=== PATIENT | male | born 1950 | race Caucasian/White ===

== ENCOUNTER 2024-01-02 22:17 | Inpatient (IN) | payer OTHER, SELFPAY ==
[2024-01-02 22:40] VITALS: BP 107/65; PULSE 81; RESP 18; TEMP 36.4; O2SAT 98
[2024-01-02 23:22] VITALS: BMI 18.5
--- NOTE | 2024-01-03 01:43 | PC.ADMIT ---
Patient is a 73 year old male admitted to S1 on 01/02/24 at 2240 from [facility] for SI and MDD. Patient has a past medical history of AFIB, paraplegia (patient is bedbound, b/l lower extremities contracted, MDD. He lives at home with (HCP). Patient brought to [facility] after found him with a knife, making slicing motions to his arms. She also reported about one week ago, he attempted to drink bleach. While hospitalized, he was under the impression that he killed both his and JOB TRAINING SPECIALIST. Patient is noncompliant with his risperdal. Upon arrival to the unit, patient is alert and smiling. He is soft spoken, whispers repetitive statements during conversation. He is oriented to person, time. He believed he was at [facility]. When asked what brought him to the hospital, patient states ?I am Satan,? ?I shouldn?t be here,? When asked if this contract writer could call his , patient replied, ?No, she?s .? Patient declines SI/HI/AH/VH and contracts for safety. Skin assessment and contraband check completed with second RN. Patient has multiple open areas on his face (wound consult placed), b/l cheeks, b/l feet are dry and scaly. Coccyx is reddened but no breakdown noted. Patient also has multiple areas of keratosis along extremities and trunk. He has poor dentition and reports coughing when drinking liquids (swallow eval placed). Patient unable to sign any paperwork during admission process due to mental status. He is currently on 5 minute safety checks.
--- NOTE | 2024-01-03 06:40 | HO.PSYADMNOT ---
HPI Date of Service: 01/03/24 Chief Complaint: Major depressive disorder Sources of Information: patient interviewed, chart reviewed and crisis/core team assessment reviewed Additional Sources of Information: [facility] HPI Subjective Notes: [place] Warning (unable to show understanding) and Section 12B Narrative: Mr. Salinas is a 73 year-old male with hx of depression, hx of suicide attempt in 1969 which resulted in anoxic brain injury and paraplegia along with other speech impairments. He was brought to ED due to reporting that pt was expressing increased depression suicidal ideation and she had found him once holding a knife and in another occasion holding a bottle of bleach. Pt is paraplegic and is total care. Pt seen in his bed. It is very difficult to understand what he says. hypophonia noted, some repetition of certain words. He does not seem to be oriented to place. He did say that he is here because he tried to kill myself. Attempts to ask about how he attempted to kill himself, again not much information able to gather. He does repeat at times that I'm bad. At other times, he has also said that my is . Other times, he has said I didn't kill her she was sick. When asked to elaborate, he states I have goins. Again when asked to explain, no more further information. He smiles at times and seems to get along with one of the mental health counselors on the unit. He is eating when food presented to him. This video game script writer spoke with over the phone, difficult to understand as she appeared short of breath, which this video game script writer asked if she was okay, she said yes. She reports pt appears much more depressed than usual. Medical Evaluation Reviewed: Yes [facility] Medical History (Updated 01/05/24 @ 11:26 by Diamond Ewing NP) Paroxysmal A-fib Suicidal ideation Carbon monoxide poisoning, suicide attempt Anoxic brain injury Paraplegia MDD (major depressive disorder) Diagnostics Vital Signs (24Hr): Vital Signs - 24 hr 01/02/24 22:40 Temperature 97.6 F Pulse Rate 81 Respiratory Rate 18 Blood Pressure 107/65 Pulse Oximetry 98 Oxygen Delivery Method Room Air BMI result Body Mass Index 18.5 Labs 01/05/24 09:04 Meds/Allergies Meds Home Medications ?Medication ?Instructions ?Recorded ?Confirmed ?Type cyanocobalamin (vitamin B-12) 2,000 mcg PO DAILY 01/02/24 01/02/24 History 1,000 mcg tablet docusate sodium 50 mg capsule 100 mg PO BID 01/02/24 01/02/24 History hydroxyzine HCl 10 mg tablet 10 mg PO TID PRN Anxiety 01/02/24 01/02/24 History risperidone 0.5 mg tablet 0.5 mg PO BEDTIME 01/02/24 01/02/24 History sennosides 8.6 mg-docusate sodium 1 tab-cap PO BID 01/02/24 01/02/24 History 50 mg capsule (Senna Plus) sertraline 50 mg tablet 25 mg PO DAILY 01/02/24 01/02/24 History Allergies Allergies Allergy/AdvReac Type Severity Reaction Status Date / Time Penicillins Allergy Severe Anaphylaxis Verified 01/02/24 22:42 Mental Status Exam Mental Status Exam Narrative: Appearance: wearing hospital gown, in bed, in NAD behavior: not guarded, attempting to engage but very difficult to comprehend Psychomotor: some retardation noted Speech: significant for hypophonia, mumbles, mostly unintelligible, spontaneous TP: disorganized, TC: feeling depressed Affect: brightens at times SI: unable to assess HI: unable to assess VH/AH: appears internally preoccupied Delusions: some delusional content such as being Insight/judgment: impaired x 2. memory/cog: severe impairments in orientation, and other cognitive/memory functions Assessment & Plan Assessment & Plan (1) MDD (major depressive disorder): Status: Acute Code(s): F32.9 - Major depressive disorder, single episode, unspecified (2) Major neurocognitive disorder: Status: Acute Code(s): F03.90 - Unspecified dementia, unspecified severity, without behavioral disturbance, psychotic disturbance, mood disturbance, and anxiety Plan Mr. Salinas is a 73 year-old male with hx of anoxic brain injury, depression, cognitive impairments, paraplegic who was brought to ED due to increased depression, apparently holding a knife and attempting to cut wrist, another time holding bleech bottle. He is not able to move on his own not reach to dangerous objects on his own. risk of actual harm does seem low base on fact that he is paraplegic. It is very difficult to understand. His thought process is with derailment disorganized. suspect more severe cognitive impairments. He does appear with psychosis and delusions. Pending collateral information from his continuous churn buttermaker OP psychiatrist. PLAN 1. admit to S1, sect 12b 2. increase risperidone 1mg po BID. continue sertraline Patient educated on: diagnosis Reason for continued inpatient stay Substantial Risk for: harm to self and inability to function Statement Statement: I have reviewed the history and physical and performed a pertinent examination on my patient. No changes have occurred unless specified. If the History and Physical was not performed prior to admission, the Hospitalist's service will be consulted for completing the admission physical. Time Spent With Patient Time: Total time managing care of this patient today ____ minutes.
[2024-01-03 09:05] VITALS: BP 132/86; PULSE 89; RESP 16; TEMP 36.3; O2SAT 98
--- NOTE | 2024-01-03 11:47 | MHC.SL.SWA ---
Speech Pathologist Impression: Risk of Aspiration, Oral Phase Dysphagia Risk of Aspiration Due to: Reduced Cognition Weak Voice Dysphasia Diet Status: DOWNGRADE from regular texture to ground d/t oral dysphagia Liquid Consistency and Strategies for Safe Swallow: Liquid Intake Recommendation: Thin Liquid Intake Strategies: Small Sips Solid Food Consistency: Dietary Recommendations: Grnd/Mech Altered (NDD2) Additional Modifications to Solid Foods: Patient w/ mild oral phase dysphagia secondary to poor dentition. Recommend GROUND/MECH ALTERED (NDD2) solids for ease of mastication and THIN liquids, pills administered WHOLE in LIQUID or PUREE depending on patient's tolerance. To promote oral clearance, give small bites, ensure patient has cleared oral cavity before giving next bite, alternate bites with sips of liquid. Patient will need 1:1 feeding d/t paraplegia. Oral Medication Intake: Whole with Puree Please contact the pharmacy regarding appropriate crushable or liquid drug formulations that are available whenever modified delivery is recommended. Compensatory Strategies and Precautions to be Taken for Safe Swallow: Sitting Upright (90 deg) No Straw Small Bites and Sips Alternate Liquids/Solids Rate of Ingestion Change Supervision While Eating and Drinking for Safe Swallow: Total Assistance (1:1) Swallowing Recommended Treatments: Compens. Strategy Educat. Recommendation for Speech: Inpatient Speech Therapy Comment: 1 f/u to monitor Frequency/Duration: Date Range for Service Req: Timeline to reassess: PRN Motorcycle Builder Clinican/Clinical Fellow: No Supervisory Statement: I have reviewed and agree with the student/clinical fellow's documentation: N/A Speech Language Pathologist: Lynne Ma M.A., CCC-PIPE BENDER
[2024-01-03] MEDS: Cyanocobalamin (Vitamin B-12) 1,000 MCG TABLET 2000 MCG PO (12:04)
[2024-01-03] MEDS: Sertraline HCL 50 MG TABLET PO (12:05)
[2024-01-03] MEDS: Sennosides/Docusate Sodium TABLET 1 TAB PO ×2 (12:05→21:34)
[2024-01-03] MEDS: Docusate Sodium 100 MG/10 ML LIQUID PO ×2 (12:06→21:35)
[2024-01-03] MEDS: risperiDONE 1 MG TABLET PO ×2 (12:06→21:34)
--- NOTE | 2024-01-03 12:43 | P.CONHOSP_ITS ---
History of Present Illness Data of Consult Service Date: 01/03/24 Primary Care Provider: Unknown Physician HPI Reason for consult: Admission H&P Pt is a 73-year-old male with a PMH significant for?persistent AFib not on anticoagulation, MDD with multiple suicide attempts including carbon monoxide poisoning complicated by anoxic brain injury and paraplegia, medication overdoses, cutting, and ingestion of mouthwash requiring intubation and ICU admission who is admitted to [facility] for increasing depression and SI. Patient was reportedly home with his when she witnessed him holding a knife to his wrist and making a/seeing motion. The previous week patient attempt to drink bleach. Medical consult for admission H&P. ?Patient is seen and evaluated at bedside where he is alert to self only. Patient speaks in a whisper and is difficult to understand, which is further complicated by perseverating on a particular idea/word which he will then repeat. Patient does not appear to have any acute medical complaints at this time. Vitals stable and WNL. Labs from admitting ED reviewed and grossly unremarkable. Review of Systems Review of Systems: Yes Unobtainable due to mental status [facility] Medical History (Updated 01/03/24 @ 13:37 by YISSEL Karimi) Paroxysmal A-fib Suicidal ideation Carbon monoxide poisoning, suicide attempt Anoxic brain injury Paraplegia MDD (major depressive disorder) Social History Household Members: Spouse Housing: House Do you presently have visiting nurse or other home services: Yes (LEARNING MANAGER) Patient Tobacco Use Status: Former Tobacco user Tobacco use type: Cigarette Use of substances other than those prescribed or required for medical reasons: No Advance Directives: Yes Advance Directives Information Provided: No Recently lost weight without trying: Unsure How much weight loss: Unsure Eating poorly because of decreased appetite: Yes Nutrition screen score: 5 Nutrition Risks: Dental problems and Difficulty swallowing Poor oral hygiene: Yes Meds Allergies Allergy/AdvReac Type Severity Reaction Status Date / Time Penicillins Allergy Severe Anaphylaxis Verified 01/02/24 22:42 Active Medications: Current Medications Acetaminophen (Acetaminophen 325 Mg Tablet) 650 mg PO Q6H PRN PRN Reason: Headache/Pain Mild Scale (1-3) Al Hydroxide/Mg Hydroxide (Magnesium Hydrox/Alum Hydrox 30 Ml Oral.Susp) 30 ml PO Q6H PRN PRN Reason: Heartburn/Nausea Cyanocobalamin (Cyanocobalamin (Vitamin B-12) 1,000 Mcg Tablet) 2,000 mcg PO DAILY [facility] Last Admin: 01/03/24 12:04 Dose: 2,000 mcg Docusate Sodium (Docusate Sodium 100 Mg/10 Ml Liquid) 100 mg PO BID [facility] Last Admin: 01/03/24 12:06 Dose: 100 mg Magnesium Hydroxide (Milk Of Magnesia 30 Ml Oral.Susp) 30 ml PO DAILY PRN PRN Reason: Constipation Olanzapine (Olanzapine 5 Mg Tablet) 5 mg PO Q6H PRN PRN Reason: agitation Risperidone (Risperidone 1 Mg Tablet) 1 mg PO BID [facility] Last Admin: 01/03/24 12:06 Dose: 1 mg Senna/Docusate Sodium (Sennosides/Docusate Sodium Tablet) 1 tab PO BID [facility] Last Admin: 01/03/24 12:05 Dose: 1 tab Sertraline HCl (Sertraline Hcl 50 Mg Tablet) 50 mg PO DAILY [facility] Last Admin: 01/03/24 12:05 Dose: 50 mg Trazodone HCl (Trazodone Hcl 50 Mg Tablet) 50 mg PO BEDTIME [id number] PRN PRN Reason: Insomnia Home Medications ?Medication ?Instructions ?Recorded ?Confirmed ?Last Taken ?Type cyanocobalamin (vitamin B-12) 2,000 mcg PO DAILY 01/02/24 01/02/24 Unknown History 1,000 mcg tablet docusate sodium 50 mg capsule 100 mg PO BID 01/02/24 01/02/24 Unknown History hydroxyzine HCl 10 mg tablet 10 mg PO TID PRN Anxiety 01/02/24 01/02/24 Unknown History risperidone 0.5 mg tablet 0.5 mg PO BEDTIME 01/02/24 01/02/24 Unknown History sennosides 8.6 mg-docusate sodium 1 tab-cap PO BID 01/02/24 01/02/24 Unknown History 50 mg capsule (Senna Plus) sertraline 50 mg tablet 25 mg PO DAILY 01/02/24 01/02/24 Unknown History Physical Exam Vital Signs and Narrative: Vital Signs: Last Vital Signs Temp 97.3 F 01/03/24 09:05 Pulse 89 01/03/24 09:05 Resp 16 01/03/24 09:05 BP 132/86 01/03/24 09:05 Pulse Ox 98 01/03/24 09:05 O2 Del Method Room Air 01/03/24 09:05 BMI result Body Mass Index 18.5 General: AOx1 only. Cachectic, unkempt, poor dentition. Difficult to understand. In no acute distress Resp: CTA bilaterally CVS: Irregularly irregular rhythm. No murmurs, rubs, gallops appreciated GI: +BS, NT, no distention Skin: Warm, dry Neuro: Paraplegic. Moves upper extremities spontaneously, though weak with 2/5 symmetrical strength. Follows commands. Extremities: No edema Psych: Confused, repetitive speech Assessment and Plan (1) Medical clearance for psychiatric admission: Status: Acute Plan Pt is a 73-year-old male with a PMH significant for?persistent AFib not on anticoagulation, MDD with multiple suicide attempts including carbon monoxide poisoning complicated by anoxic brain injury and paraplegia, medication overdoses, cutting, and ingestion of mouthwash requiring intubation and ICU admission who is admitted to [facility] for increasing depression and SI. Patient was reportedly home with his when she witnessed him holding a knife to his wrist and making a/seeing motion. The previous week patient attempt to drink bleach. Medical consult for admission H&P. Mood disorder Plan as per Psychiatry Paroxysmal AFib Apparently not on anticoagulation Paraplegia Apparently secondary to anoxic brain injury from suicide attempt with carbon monoxide poisoning Patient positioning q.2 hours Assess for transfer status Thank you for allowing us to participate in the care of this patient. Signing off at this time. Please re-consult if any acute complaints or issues arise.
[2024-01-03 20:00] VITALS: BP 101/67; PULSE 67; RESP 18; TEMP 36.8; O2SAT 100
[2024-01-03] MEDS: traZODone HCL 50 MG TABLET PO (21:34)
[2024-01-04 08:54] VITALS: BP 109/70; PULSE 97; RESP 17; TEMP 36; O2SAT 99
[2024-01-04] MEDS: Sertraline HCL 50 MG TABLET PO (08:57)
[2024-01-04] MEDS: risperiDONE 1 MG TABLET PO ×2 (08:57→20:22)
[2024-01-04] MEDS: Cyanocobalamin (Vitamin B-12) 1,000 MCG TABLET 2000 MCG PO (08:57)
[2024-01-04] MEDS: Sennosides/Docusate Sodium TABLET 1 TAB PO ×2 (08:57→20:22)
[2024-01-04] MEDS: Docusate Sodium 100 MG/10 ML LIQUID PO ×2 (09:00→20:22)
--- NOTE | 2024-01-04 19:58 | P.PNPSI_ITS ---
Subjective Subjective Date of Service: 01/04/24 Reason For Visit: Major depressive disorder Subjective Notes: Section 12B Interim History: Pt slept through the night. He is cooperative with care and appears to get along with one of the mental health counselors. Smiles and agreed to wear sunglasses which then he was asking to let staff see himself in the mirror. Tells this staff I wish all my marriages were like this while he is smiling. Some verbalization about being here due to suicide attempt, but no more detail related to this. He again reported but says he did not kill her. Mental Status Exam Mental Status Exam Narrative: Appearance: wearing hospital gown, in bed, in NAD behavior: not guarded, attempting to engage but very difficult to comprehend Psychomotor: some retardation noted Speech: significant for hypophonia, mumbles, mostly unintelligible, spontaneous TP: disorganized, TC: feeling depressed Affect: brightens at times SI: unable to assess HI: unable to assess VH/AH: appears internally preoccupied Delusions: some delusional content such as being Insight/judgment: impaired x 2. memory/cog: severe impairments in orientation, and other cognitive/memory functions Diagnostics Vital Signs (24Hr): Vital Signs - 24 hr 01/03/24 20:00 01/04/24 08:54 Temperature 98.3 F 96.8 F Pulse Rate 67 97 Respiratory Rate 18 17 Blood Pressure 101/67 109/70 Pulse Oximetry 100 99 Oxygen Delivery Method Room Air Room Air BMI result Body Mass Index 18.5 Labs 01/05/24 09:04 Medications Medications Current Medications Acetaminophen (Acetaminophen 325 Mg Tablet) 650 mg PO Q6H PRN PRN Reason: Headache/Pain Mild Scale (1-3) Al Hydroxide/Mg Hydroxide (Magnesium Hydrox/Alum Hydrox 30 Ml Oral.Susp) 30 ml PO Q6H PRN PRN Reason: Heartburn/Nausea Cyanocobalamin (Cyanocobalamin (Vitamin B-12) 1,000 Mcg Tablet) 2,000 mcg PO DAILY [facility] Last Admin: 01/04/24 08:57 Dose: 2,000 mcg Docusate Sodium (Docusate Sodium 100 Mg/10 Ml Liquid) 100 mg PO BID [facility] Last Admin: 01/04/24 09:00 Dose: 100 mg Magnesium Hydroxide (Milk Of Magnesia 30 Ml Oral.Susp) 30 ml PO DAILY PRN PRN Reason: Constipation Olanzapine (Olanzapine 5 Mg Tablet) 5 mg PO Q6H PRN PRN Reason: agitation Risperidone (Risperidone 1 Mg Tablet) 1 mg PO BID [facility] Last Admin: 01/04/24 08:57 Dose: 1 mg Senna/Docusate Sodium (Sennosides/Docusate Sodium Tablet) 1 tab PO BID [facility] Last Admin: 01/04/24 08:57 Dose: 1 tab Sertraline HCl (Sertraline Hcl 50 Mg Tablet) 50 mg PO DAILY [facility] Last Admin: 01/04/24 08:57 Dose: 50 mg Trazodone HCl (Trazodone Hcl 50 Mg Tablet) 50 mg PO BEDTIME MRX1 PRN PRN Reason: Insomnia Last Admin: 01/03/24 21:34 Dose: 50 mg Allergies Allergies Allergy/AdvReac Type Severity Reaction Status Date / Time Penicillins Allergy Severe Anaphylaxis Verified 01/02/24 22:42 Assessment & Plan Assessment & Plan (1) MDD (major depressive disorder): Status: Acute Code(s): F32.9 - Major depressive disorder, single episode, unspecified (2) Major neurocognitive disorder: Status: Acute Code(s): F03.90 - Unspecified dementia, unspecified severity, without behavioral disturbance, psychotic disturbance, mood disturbance, and anxiety Plan Pt is a 73-year-old male with a PMH significant for?persistent AFib not on anticoagulation, MDD with multiple suicide attempts including carbon monoxide poisoning complicated by anoxic brain injury and paraplegia, medication overdoses, cutting, and ingestion of mouthwash requiring intubation and ICU admission who is admitted to [facility] for increasing depression and SI. Patient was reportedly home with his when she witnessed him holding a knife to his wrist and making a/seeing motion. The previous week patient attempt to drink bleach. Medical consult for admission H&P. Mood disorder Plan as per Psychiatry Paroxysmal AFib Apparently not on anticoagulation Paraplegia Apparently secondary to anoxic brain injury from suicide attempt with carbon monoxide poisoning Patient positioning q.2 hours Assess for transfer status PSYCH PLAN Mr. Salinas is a 73 year-old male with hx of anoxic brain injury, depression, cognitive impairments, paraplegic who was brought to ED due to increased depression, apparently holding a knife and attempting to cut wrist, another time holding bleech bottle. He is not able to move on his own not reach to dangerous objects on his own. risk of actual harm does seem low base on fact that he is paraplegic. It is very difficult to understand. His thought process is with derailment disorganized. suspect more severe cognitive impairments. He does appear with psychosis and delusions. Pending collateral information from his extermination supervisor OP psychiatrist. PLAN 1. admit to S1, sect 12b 2. increase risperidone 1mg po BID. continue sertraline 3. pending collateral information from OP psychiatrist. This automobile service writer spoke with but information is limited. Reason for continued inpatient stay Substantial Risk for: inability to function Time Spent With Patient Time: Total time managing care of this patient today ____ minutes.
[2024-01-04 20:20] VITALS: BP 106/69; PULSE 88; RESP 17; TEMP 36.7; O2SAT 99
[2024-01-05 09:08] VITALS: BP 102/59; PULSE 75; RESP 14; TEMP 36.9; O2SAT 96
[2024-01-05 10:02] LABS: Estimated Average Glucose 105 mg/dL; Hemoglobin A1C 106.3767 umol/L; Hemoglobin A1c % 5.3 % (<6.0); Total Hemoglobin (HGBA1C) 3096.3383 umol/L
[2024-01-05] MEDS: Docusate Sodium 100 MG/10 ML LIQUID PO ×2 (10:03→20:41)
[2024-01-05] MEDS: Cyanocobalamin (Vitamin B-12) 1,000 MCG TABLET 2000 MCG PO (10:04)
[2024-01-05] MEDS: Sertraline HCL 50 MG TABLET PO (10:04)
[2024-01-05] MEDS: Sennosides/Docusate Sodium TABLET 1 TAB PO ×2 (10:05→20:39)
[2024-01-05] MEDS: risperiDONE 1 MG TABLET PO ×2 (10:05→20:38)
[2024-01-05 10:36] LABS: Alanine Aminotransferase 11 U/L (0-40); Albumin Level 3.2 g/dL (3.5-5.0); Alkaline Phosphatase 76 U/L (39-117); Anion Gap 8 (12-20); Aspartate Amino Transferase 21 U/L (5-37); Bilirubin Total 0.6 mg/dL (0.0-1.0); Blood Urea Nitrogen 17 mg/dL (9-16); Calcium 8.6 mg/dL (8.4-10.2); Carbon Dioxide 29 mmol/L (22-29); Chloride 106 mmol/L (96-108); Cholesterol 158 mg/dL (<200); Creatinine Clr Calc Pharmacy 82.5; Estimated Glomerular Filt Rate > 60; Glucose Fasting 92 mg/dL (60-99); HDL Cholesterol 47 mg/dL (>40); LDL Cholesterol Calculated 91 mg/dL (<100); Potassium 3.9 mmol/L (3.3-5.1); Sodium 139 mmol/L (135-145); Total Protein 6.3 g/dL (6.5-8.0); Triglycerides 101 mg/dL (<150)
[2024-01-05 11:22] LABS: Thyroid Stimulating Hormone 1.57 uIU/mL (0.32-4.0)
[2024-01-05 11:38] LABS: Folate 7.5 ng/mL (> or = 4.0); Vitamin B12 > 2000 pg/mL (200-900)
--- NOTE | 2024-01-05 12:29 | MHC.SL.SWA ---
Speech Pathologist Impression: Dysphagia d/t reduced cognition Risk of Aspiration Due to: Reduced Cognition Weak Voice Dysphasia Diet Status: Patient will need 1:1 feeding d/t paraplegia. Liquid Consistency and Strategies for Safe Swallow: Liquid Intake Recommendation: Thin Liquid Intake Strategies: Small Sips Solid Food Consistency: Dietary Recommendations: Grnd/Mech Altered (NDD2) Additional Modifications to Solid Foods: Patient w/ mild oral phase dysphagia secondary to poor dentition. Recommend GROUND/MECH ALTERED (NDD2) solids for ease of mastication and THIN liquids, pills administered WHOLE in LIQUID or PUREE depending on patient's tolerance. To promote oral clearance, give small bites, ensure patient has cleared oral cavity before giving next bite, alternate bites with sips of liquid. Patient will need 1:1 feeding d/t paraplegia. Oral Medication Intake: Whole with Puree Please contact the pharmacy regarding appropriate crushable or liquid drug formulations that are available whenever modified delivery is recommended. Compensatory Strategies and Precautions to be Taken for Safe Swallow: Sitting Upright (90 deg) Small Bites and Sips Alternate Liquids/Solids Rate of Ingestion Change Supervision While Eating and Drinking for Safe Swallow: Total Assistance (1:1) Foods to Avoid: Swallowing Recommended Treatments: Compens. Strategy Educat. Recommendation for Speech: Inpatient Speech Therapy Comment: Pt seen for dysphagia tx 01/05/24, pt sitting upright in chair, alert and conversant. Pt endorses persisting dysphagia, describing esophageal involvement characterized by difficulty 'getting food to go down'. Pt avoids some soft solids like pasta d/t this difficulty. Oral phase remains mildly impaired as pt doesn't have dentures, though he has been dealing with this for some time. Pt states he uses liquid to help moisten the bite, and sips thin liquids to 'wash it down' as he eats. RN consulted, no concerns with pt PO intake. Hospitalist notified of no diet changes, FILTER OPERATOR recc GI consult d/t pt complaints. FILTER OPERATOR to continue to follow. Frequency/Duration: Date Range for Service Req: Timeline to reassess: PRN Procurement Intern Clinican/Clinical Fellow: No Supervisory Statement: I have reviewed and agree with the student/clinical fellow's documentation: N/A Speech Language Pathologist: Cookie Argueta M.S., CCC-FILTER OPERATOR
--- NOTE | 2024-01-05 12:33 | MHC.SL.SWA ---
Addendum entered and electronically signed by Cookie Argueta MS, CCC-HOSPICE PATIENT CARE SECRETARY 01/05/24 12:43: Pt tolerating downgraded diet without overt dysphagia, requires 1:1 feeding to cue for attention and encourage PO intake. HOSPICE PATIENT CARE SECRETARY intervention no longer indicated as staff on unit providing appropriate support, HOSPICE PATIENT CARE SECRETARY to be contacted should concerns arise. Original Note: Speech Pathologist Impression: Dysphagia d/t reduced cognition Risk of Aspiration Due to: Reduced Cognition Weak Voice Dysphasia Diet Status: Patient will need 1:1 feeding d/t paraplegia. Liquid Consistency and Strategies for Safe Swallow: Liquid Intake Recommendation: Thin Liquid Intake Strategies: Small Sips Solid Food Consistency: Dietary Recommendations: Grnd/Mech Altered (NDD2) Additional Modifications to Solid Foods: Patient w/ mild oral phase dysphagia secondary to poor dentition. Recommend GROUND/MECH ALTERED (NDD2) solids for ease of mastication and THIN liquids, pills administered WHOLE in LIQUID or PUREE depending on patient's tolerance. To promote oral clearance, give small bites, ensure patient has cleared oral cavity before giving next bite, alternate bites with sips of liquid. Patient will need 1:1 feeding d/t paraplegia. Oral Medication Intake: Whole with Puree Please contact the pharmacy regarding appropriate crushable or liquid drug formulations that are available whenever modified delivery is recommended. Compensatory Strategies and Precautions to be Taken for Safe Swallow: Sitting Upright (90 deg) Small Bites and Sips Alternate Liquids/Solids Rate of Ingestion Change Supervision While Eating and Drinking for Safe Swallow: Total Assistance (1:1) Foods to Avoid: Swallowing Recommended Treatments: Compens. Strategy Educat. Recommendation for Speech: Inpatient Speech Therapy Comment: Pt seen for dysphagia tx 01/04, pt expressive through scripted responses, non-verbal gesturing and eye contact. Pt observed to tolerate small amounts of mechanically altered solids by tsp presentations with adequate oropharyngeald coordination. RN consulted, pt to remain upright after eating for 20 minutes. Pt needs 1:1 assistance for all PO intake, aspiration precautions. HOSPICE PATIENT CARE SECRETARY to continue to follow. Frequency/Duration: Date Range for Service Req: Timeline to reassess: PRN Assembly Machine Set Up Mechanic Clinican/Clinical Fellow: No Supervisory Statement: I have reviewed and agree with the student/clinical fellow's documentation: N/A Speech Language Pathologist: Cookie Argueta M.S., CCC-HOSPICE PATIENT CARE SECRETARY
--- NOTE | 2024-01-05 13:57 | HO.PSYCHPN ---
Subjective Subjective Date of Service: 01/05/24 Reason For Visit: Major depressive disorder Subjective Notes: Section 12B Interim History: The nursing staff reported the patient had been confused nonverbal. He has been tearful and reported the staff that he said that he had killed his . He is paraplegic with multiple suicidal attempts in the past. On interview the patient refused to elaborate he looks aphasic. Mental Status Exam Mental Status Exam Patient Appearance: Well Grooomed and Appropriate Patient Orientation: Person and Situation Level of Consciousness: Awake Patient Behavior: Guarded and Passive Mood Description: Withdrawn Affect Description: Blunted Patient Cognition Impaired: Yes Ability to Follow Directions: Good Speech Pattern: Clear Hallucinations: None Delusions: Not Present Thought Process: Distracted and Slowed Thinking Thought Content: positive for [place], positive for Poverty of Content and positive for Thought Blocking Judgement: Poor Diagnostics Vital Signs (24Hr): Vital Signs - 24 hr 01/04/24 20:20 01/05/24 09:08 Temperature 98.1 F 98.5 F Pulse Rate 88 75 Respiratory Rate 17 14 Blood Pressure 106/69 102/59 L Pulse Oximetry 99 96 Oxygen Delivery Method Room Air Room Air BMI result Body Mass Index 18.5 Labs 01/05/24 09:04 Labs: Laboratory Results - last 48 hr 01/05/24 09:04 Sodium 139 Potassium 3.9 Chloride 106 Carbon Dioxide 29 Anion Gap 8 L BUN 17 H Creatinine 0.62 Estim Creat Clear Calc 82.5 Estimated GFR > 60 Fasting Glucose 92 Estimat Average Glucose 105 Hemoglobin A1c % 5.3 Calcium 8.6 Total Bilirubin 0.6 AST 21 ALT 11 Alkaline Phosphatase 76 Total Protein 6.3 L Albumin 3.2 L Triglycerides 101 Cholesterol 158 LDL Cholesterol, Calc 91 HDL Cholesterol 47 Vitamin B12 > 2000 H Folate 7.5 TSH 1.57 Medications Medications Current Medications Acetaminophen (Acetaminophen 325 Mg Tablet) 650 mg PO Q6H PRN PRN Reason: Headache/Pain Mild Scale (1-3) Al Hydroxide/Mg Hydroxide (Magnesium Hydrox/Alum Hydrox 30 Ml Oral.Susp) 30 ml PO Q6H PRN PRN Reason: Heartburn/Nausea Cyanocobalamin (Cyanocobalamin (Vitamin B-12) 1,000 Mcg Tablet) 2,000 mcg PO DAILY [facility] Last Admin: 01/05/24 10:04 Dose: 2,000 mcg Docusate Sodium (Docusate Sodium 100 Mg/10 Ml Liquid) 100 mg PO BID [facility] Last Admin: 01/05/24 10:03 Dose: 100 mg Magnesium Hydroxide (Milk Of Magnesia 30 Ml Oral.Susp) 30 ml PO DAILY PRN PRN Reason: Constipation Olanzapine (Olanzapine 5 Mg Tablet) 5 mg PO Q6H PRN PRN Reason: agitation Risperidone (Risperidone 1 Mg Tablet) 1 mg PO BID [facility] Last Admin: 01/05/24 10:05 Dose: 1 mg Senna/Docusate Sodium (Sennosides/Docusate Sodium Tablet) 1 tab PO BID [facility] Last Admin: 01/05/24 10:05 Dose: 1 tab Sertraline HCl (Sertraline Hcl 50 Mg Tablet) 50 mg PO DAILY [facility] Last Admin: 01/05/24 10:04 Dose: 50 mg Trazodone HCl (Trazodone Hcl 50 Mg Tablet) 50 mg PO BEDTIME MRX1 PRN PRN Reason: Insomnia Last Admin: 01/03/24 21:34 Dose: 50 mg Allergies Allergies Allergy/AdvReac Type Severity Reaction Status Date / Time Penicillins Allergy Severe Anaphylaxis Verified 01/02/24 22:42 Assessment & Plan Assessment & Plan (1) MDD (major depressive disorder): Status: Acute Code(s): F32.9 - Major depressive disorder, single episode, unspecified (2) Major neurocognitive disorder: Status: Acute Code(s): F03.90 - Unspecified dementia, unspecified severity, without behavioral disturbance, psychotic disturbance, mood disturbance, and anxiety Plan Pt is a 73-year-old male with a PMH significant for?persistent AFib not on anticoagulation, MDD with multiple suicide attempts including carbon monoxide poisoning complicated by anoxic brain injury and paraplegia, medication overdoses, cutting, and ingestion of mouthwash requiring intubation and ICU admission who is admitted to [facility] for increasing depression and SI. Patient was reportedly home with his when she witnessed him holding a knife to his wrist and making a/seeing motion. The previous week patient attempt to drink bleach. Medical consult for admission H&P. Mood disorder Plan as per Psychiatry Paroxysmal AFib Apparently not on anticoagulation Paraplegia Apparently secondary to anoxic brain injury from suicide attempt with carbon monoxide poisoning Patient positioning q.2 hours Assess for transfer status PSYCH PLAN Mr. Salinas is a 73 year-old male with hx of anoxic brain injury, depression, cognitive impairments, paraplegic who was brought to ED due to increased depression, apparently holding a knife and attempting to cut wrist, another time holding bleech bottle. He is not able to move on his own not reach to dangerous objects on his own. risk of actual harm does seem low base on fact that he is paraplegic. It is very difficult to understand. His thought process is with derailment disorganized. suspect more severe cognitive impairments. He does appear with psychosis and delusions. Pending collateral information from his terminal computer operator OP psychiatrist. PLAN 1. admit to S1, sect 12b 2. increase risperidone 1mg po BID. continue sertraline 3. pending collateral information from OP psychiatrist. This screenplay writer spoke with but information is limited. Reason for continued inpatient stay Substantial Risk for: inability to function, rapid decompensation and med/psych decompensation Time Spent With Patient Time: Total time managing care of this patient today __20__ minutes.
[2024-01-05 14:56] VITALS: BMI 18.5
[2024-01-05 20:00] VITALS: BP 115/70; PULSE 79; RESP 18; TEMP 36.2; O2SAT 98
[2024-01-05] MEDS: traZODone HCL 50 MG TABLET PO (20:38)
[2024-01-06] MEDS: Docusate Sodium 100 MG/10 ML LIQUID PO ×2 (09:22→21:34)
[2024-01-06] MEDS: risperiDONE 1 MG TABLET PO ×2 (09:22→21:33)
[2024-01-06] MEDS: Sertraline HCL 50 MG TABLET PO (09:22)
[2024-01-06] MEDS: Cyanocobalamin (Vitamin B-12) 1,000 MCG TABLET 2000 MCG PO (09:22)
[2024-01-06] MEDS: Sennosides/Docusate Sodium TABLET 1 TAB PO ×2 (09:22→21:33)
[2024-01-06 09:25] VITALS: BP 106/72; PULSE 85; RESP 14; TEMP 36.8; O2SAT 97
[2024-01-06] MEDS: Clotrimazole 1 % Cream 15 GM TUBE 1 APPL TOPICAL (10:59)
--- NOTE | 2024-01-06 13:53 | HO.PSYCHPN ---
Subjective Subjective Date of Service: 01/06/24 Reason For Visit: Major depressive disorder Subjective Notes: Conditional Voluntary Interim History: The nursing staff reported the patient remains paraplegic aphasic at times. The intake provider called the and apparently she also has cognitive impairment. The staff has noticed the patient has discharge from her eye and looks very neglected. On interview the patient was minimally verbal, nearly aphasic Mental Status Exam Mental Status Exam Patient Appearance: Well Grooomed Patient Orientation: Person Level of Consciousness: Awake Patient Behavior: Guarded Mood Description: Withdrawn Affect Description: Blunted Patient Cognition Impaired: Yes Ability to Follow Directions: Fair Speech Pattern: No Speech Hallucinations: None Delusions: Ideas of Reference Thought Process: Distracted and Slowed Thinking Thought Content: positive for [place] and positive for Thought Blocking Judgement: Poor Diagnostics Vital Signs (24Hr): Vital Signs - 24 hr 01/05/24 20:00 01/06/24 09:25 Temperature 97.2 F 98.3 F Pulse Rate 79 85 Respiratory Rate 18 14 Blood Pressure 115/70 106/72 Pulse Oximetry 98 97 Oxygen Delivery Method Room Air Room Air BMI result Body Mass Index 18.5 Labs 01/05/24 09:04 Labs: Laboratory Results - last 48 hr 01/05/24 09:04 Sodium 139 Potassium 3.9 Chloride 106 Carbon Dioxide 29 Anion Gap 8 L BUN 17 H Creatinine 0.62 Estim Creat Clear Calc 82.5 Estimated GFR > 60 Fasting Glucose 92 Estimat Average Glucose 105 Hemoglobin A1c % 5.3 Calcium 8.6 Total Bilirubin 0.6 AST 21 ALT 11 Alkaline Phosphatase 76 Total Protein 6.3 L Albumin 3.2 L Triglycerides 101 Cholesterol 158 LDL Cholesterol, Calc 91 HDL Cholesterol 47 Vitamin B12 > 2000 H Folate 7.5 TSH 1.57 Medications Medications Current Medications Acetaminophen (Acetaminophen 325 Mg Tablet) 650 mg PO Q6H PRN PRN Reason: Headache/Pain Mild Scale (1-3) Al Hydroxide/Mg Hydroxide (Magnesium Hydrox/Alum Hydrox 30 Ml Oral.Susp) 30 ml PO Q6H PRN PRN Reason: Heartburn/Nausea Clotrimazole (Clotrimazole 1 % Cream 15 Gm Tube) 1 appl TOPICAL BID [facility]; Protocol Last Admin: 01/06/24 10:59 Dose: 1 appl Cyanocobalamin (Cyanocobalamin (Vitamin B-12) 1,000 Mcg Tablet) 2,000 mcg PO DAILY [facility] Last Admin: 01/06/24 09:22 Dose: 2,000 mcg Docusate Sodium (Docusate Sodium 100 Mg/10 Ml Liquid) 100 mg PO BID [facility] Last Admin: 01/06/24 09:22 Dose: 100 mg Magnesium Hydroxide (Milk Of Magnesia 30 Ml Oral.Susp) 30 ml PO DAILY PRN PRN Reason: Constipation Olanzapine (Olanzapine 5 Mg Tablet) 5 mg PO Q6H PRN PRN Reason: agitation Risperidone (Risperidone 1 Mg Tablet) 1 mg PO BID [facility] Last Admin: 01/06/24 09:22 Dose: 1 mg Senna/Docusate Sodium (Sennosides/Docusate Sodium Tablet) 1 tab PO BID [facility] Last Admin: 01/06/24 09:22 Dose: 1 tab Sertraline HCl (Sertraline Hcl 50 Mg Tablet) 50 mg PO DAILY [facility] Last Admin: 01/06/24 09:22 Dose: 50 mg Trazodone HCl (Trazodone Hcl 50 Mg Tablet) 50 mg PO BEDTIME MRX1 PRN PRN Reason: Insomnia Last Admin: 01/05/24 20:38 Dose: 50 mg Allergies Allergies Allergy/AdvReac Type Severity Reaction Status Date / Time Penicillins Allergy Severe Anaphylaxis Verified 01/02/24 22:42 Assessment & Plan Assessment & Plan (1) MDD (major depressive disorder): Status: Acute Code(s): F32.9 - Major depressive disorder, single episode, unspecified (2) Major neurocognitive disorder: Status: Acute Code(s): F03.90 - Unspecified dementia, unspecified severity, without behavioral disturbance, psychotic disturbance, mood disturbance, and anxiety Plan Pt is a 73-year-old male with a PMH significant for?persistent AFib not on anticoagulation, MDD with multiple suicide attempts including carbon monoxide poisoning complicated by anoxic brain injury and paraplegia, medication overdoses, cutting, and ingestion of mouthwash requiring intubation and ICU admission who is admitted to [facility] for increasing depression and SI. Patient was reportedly home with his when she witnessed him holding a knife to his wrist and making a/seeing motion. The previous week patient attempt to drink bleach. Medical consult for admission H&P. Mood disorder Plan as per Psychiatry Paroxysmal AFib Apparently not on anticoagulation Paraplegia Apparently secondary to anoxic brain injury from suicide attempt with carbon monoxide poisoning Patient positioning q.2 hours Assess for transfer status PSYCH PLAN Mr. Salinas is a 73 year-old male with hx of anoxic brain injury, depression, cognitive impairments, paraplegic who was brought to ED due to increased depression, apparently holding a knife and attempting to cut wrist, another time holding bleech bottle. He is not able to move on his own not reach to dangerous objects on his own. risk of actual harm does seem low base on fact that he is paraplegic. It is very difficult to understand. His thought process is with derailment disorganized. suspect more severe cognitive impairments. He does appear with psychosis and delusions. Pending collateral information from his machine long goods helper OP psychiatrist. PLAN 1. admit to S1, sect 12b 2. increase risperidone 1mg po BID. continue sertraline 3. pending collateral information from OP psychiatrist. This remote mortgage underwriter spoke with but information is limited. Reason for continued inpatient stay Substantial Risk for: inability to function, rapid decompensation and med/psych decompensation Time Spent With Patient Time: Total time managing care of this patient today __20__ minutes.
--- NOTE | 2024-01-06 15:41 | HO.WOUND ---
Wound Consult: Initial 73yr old?male admitted to the Geriatric Behavioral Health Unit at [facility] on 01/02/24 - See progress notes and H&P for detailed history.? Wound consult placed for face wounds.? Discussed with direct care nurse she reports the patient has concerns to the left foot with dry thickened tissue unconcerned for facial area. Patient agreeable to assessment. Bilateral socks removed - no pressure injuries noted. The left foot is noted for thickened dry scaling tissue. Large dry patch to dorsal area of foot easily removed revealing intact tissue. No open wounds noted recommend provider to consider Ammonium Lactate to aid in softening the epidermal layer which will allow for easier removal when cleansing occurs. The face was assessed there are bilateral reddened areas on each cheek, etiology unclear patient was not able to verbally report the cause but he did try to communicate when asked. The areas appear to be scratches - when I asked the patient about them he brought his hand to them and attempted to verbally communicate something to me but I was not able to decipher what he was telling me. I would recommend moisture to the areas. It is unclear if they are open wounds or red pink pigmentation changes. Please reconsult inpt wound care nurse if wound develops or is observable. The patient at baseline is paraplegic and will benefit from PIP (Pressure Injury Prevention) Interventions as listed below. Recommendations: 1. Turn and Reposition every 2 hours and as needed for patient comfort.? Use pillows or wedges to support off loading positions. Use waffle cushion when up to a chair. 2. Off Load all bony prominences with use of pillows and heel boots if needed.? Apply Preventative foams where needed. ? 3. Monitor for incontinence and moisture control, use barrier creams when needed for prevention and treatment. 4. Provide adequate and supplemental nutrition.? 5. Continue low air loss mattress. 6. Bilateral Feet - Routine Cleansing, dry well. Apply Ammonium Lactate cream per provider order, twice daily. Re-consult wound care Nurse for wound deterioration or wound changes.
[2024-01-06 20:00] VITALS: BP 106/76; PULSE 93; RESP 16; TEMP 36.1; O2SAT 99
[2024-01-07 08:40] VITALS: BP 125/84; PULSE 76; RESP 17; TEMP 36.3; O2SAT 99
[2024-01-07] MEDS: Sennosides/Docusate Sodium TABLET 1 TAB PO ×2 (08:42→21:05)
[2024-01-07] MEDS: Sertraline HCL 100 MG TABLET PO (08:42)
[2024-01-07] MEDS: Cyanocobalamin (Vitamin B-12) 1,000 MCG TABLET 2000 MCG PO (08:42)
[2024-01-07] MEDS: Docusate Sodium 100 MG/10 ML LIQUID PO ×2 (08:42→21:05)
[2024-01-07] MEDS: risperiDONE 1 MG TABLET PO ×3 (08:42→21:05)
[2024-01-07] MEDS: Clotrimazole 1 % Cream 15 GM TUBE 1 APPL TOPICAL ×2 (11:07→21:05)
--- NOTE | 2024-01-07 11:54 | P.PNPSI_ITS ---
Subjective Subjective Date of Service: 01/07/24 Reason For Visit: Major depressive disorder Subjective Notes: Conditional Voluntary Healthcare Proxy: Yes Interim History: The nursing staff reported the patient had been answering no to all the questions he had been irritable with flat affect. On interview the patient is nearly mute. He is unable to verbalize his needs at this moment. We will try to gather more collateral information. The social worker assistant contact the healthcare proxy and sign the conditional voluntary. Mental Status Exam Mental Status Exam Patient Appearance: Appropriate Patient Orientation: Person Level of Consciousness: Awake Patient Behavior: Guarded and Passive Mood Description: Withdrawn Affect Description: Constricted Patient Cognition Impaired: Yes Ability to Follow Directions: Good Speech Pattern: Clear Hallucinations: None Delusions: Ideas of Reference Thought Process: Distracted and Slowed Thinking Thought Content: positive for [place], positive for Loose Associations and positive for Thought Blocking Judgement: Poor Diagnostics Vital Signs (24Hr): Vital Signs - 24 hr 01/06/24 20:00 01/07/24 08:40 Temperature 97 F 97.3 F Pulse Rate 93 76 Respiratory Rate 16 17 Blood Pressure 106/76 125/84 Pulse Oximetry 99 99 Oxygen Delivery Method Room Air Room Air BMI result Body Mass Index 18.5 Labs 01/05/24 09:04 Medications Medications Current Medications Acetaminophen (Acetaminophen 325 Mg Tablet) 650 mg PO Q6H PRN PRN Reason: Headache/Pain Mild Scale (1-3) Al Hydroxide/Mg Hydroxide (Magnesium Hydrox/Alum Hydrox 30 Ml Oral.Susp) 30 ml PO Q6H PRN PRN Reason: Heartburn/Nausea Clotrimazole (Clotrimazole 1 % Cream 15 Gm Tube) 1 appl TOPICAL BID [facility]; Protocol Last Admin: 01/07/24 11:07 Dose: 1 appl Cyanocobalamin (Cyanocobalamin (Vitamin B-12) 1,000 Mcg Tablet) 2,000 mcg PO DAILY [facility] Last Admin: 01/07/24 08:42 Dose: 2,000 mcg Docusate Sodium (Docusate Sodium 100 Mg/10 Ml Liquid) 100 mg PO BID [facility] Last Admin: 01/07/24 08:42 Dose: 100 mg Magnesium Hydroxide (Milk Of Magnesia 30 Ml Oral.Susp) 30 ml PO DAILY PRN PRN Reason: Constipation Olanzapine (Olanzapine 5 Mg Tablet) 5 mg PO Q6H PRN PRN Reason: agitation Risperidone (Risperidone 1 Mg Tablet) 1 mg PO TID [facility] Last Admin: 01/07/24 08:42 Dose: 1 mg Senna/Docusate Sodium (Sennosides/Docusate Sodium Tablet) 1 tab PO BID [facility] Last Admin: 01/07/24 08:42 Dose: 1 tab Sertraline HCl (Sertraline Hcl 100 Mg Tablet) 100 mg PO DAILY [facility] Last Admin: 01/07/24 08:42 Dose: 100 mg Trazodone HCl (Trazodone Hcl 50 Mg Tablet) 50 mg PO BEDTIME MRX1 PRN PRN Reason: Insomnia Last Admin: 01/05/24 20:38 Dose: 50 mg Allergies Allergies Allergy/AdvReac Type Severity Reaction Status Date / Time Penicillins Allergy Severe Anaphylaxis Verified 01/02/24 22:42 Assessment & Plan Assessment & Plan (1) MDD (major depressive disorder): Status: Acute Code(s): F32.9 - Major depressive disorder, single episode, unspecified (2) Major neurocognitive disorder: Status: Acute Code(s): F03.90 - Unspecified dementia, unspecified severity, without behavioral disturbance, psychotic disturbance, mood disturbance, and anxiety Plan Pt is a 73-year-old male with a PMH significant for?persistent AFib not on anticoagulation, MDD with multiple suicide attempts including carbon monoxide poisoning complicated by anoxic brain injury and paraplegia, medication overdoses, cutting, and ingestion of mouthwash requiring intubation and ICU admission who is admitted [facility] for increasing depression and SI. Patient was reportedly home with his when she witnessed him holding a knife to his wrist and making a/seeing motion. The previous week patient attempt to drink bleach. Medical consult for admission H&P. Mood disorder Plan as per Psychiatry Paroxysmal AFib Apparently not on anticoagulation Paraplegia Apparently secondary to anoxic brain injury from suicide attempt with carbon monoxide poisoning Patient positioning q.2 hours Assess for transfer status PSYCH PLAN Mr. Salinas is a 73 year-old male with hx of anoxic brain injury, depression, cognitive impairments, paraplegic who was brought to ED due to increased depression, apparently holding a knife and attempting to cut wrist, another time holding bleech bottle. He is not able to move on his own not reach to dangerous objects on his own. risk of actual harm does seem low base on fact that he is paraplegic. It is very difficult to understand. His thought process is with derailment disorganized. suspect more severe cognitive impairments. He does appear with psychosis and delusions. Pending collateral information from his moth exterminator OP psychiatrist. PLAN 1. admit to S1, sect 12b 2. increase risperidone 1mg po BID. continue sertraline 3. pending collateral information from OP psychiatrist. This commercial loan underwriter spoke with but information is limited. Reason for continued inpatient stay Substantial Risk for: inability to function, rapid decompensation and med/psych decompensation Time Spent With Patient Time: Total time managing care of this patient today __20__ minutes.
--- NOTE | 2024-01-07 14:57 | MHC.CLN ---
Addendum entered by Leslie Colvin RD 01/07/24 15:01: RD TO FOLLOW UP WEEKLY. Original Note: F/U DIET=REGULAR, GROUND CONSISTENCY. PATIENT IS PARAPLEGIC WITH ANOXIC BRAIN INJURY. REQUIRES 1:1 FEEING ASSIST. SKIN WITH REDNESS TO COCCYX. SEE BY WOUND RN. INTAKE 100% AT BFAST AND LUNCH TODAY. NO ADDITIONAL NUTRITION INTERVENTIONS AT THIS TIME. FOLLOW FOR PO INTAKE, DIET TOLERANCE AND SKIN INTEGRITY.
[2024-01-07 20:00] VITALS: BP 101/59; PULSE 94; RESP 15; TEMP 36.7; O2SAT 94
[2024-01-08 08:43] VITALS: BP 102/59; PULSE 83; RESP 16; TEMP 36; O2SAT 98
[2024-01-08] MEDS: Cyanocobalamin (Vitamin B-12) 1,000 MCG TABLET 2000 MCG PO (08:45)
[2024-01-08] MEDS: Sertraline HCL 100 MG TABLET PO (08:45)
[2024-01-08] MEDS: Sennosides/Docusate Sodium TABLET 1 TAB PO ×2 (08:45→20:00)
[2024-01-08] MEDS: risperiDONE 1 MG TABLET PO ×3 (08:45→20:00)
[2024-01-08] MEDS: Docusate Sodium 100 MG/10 ML LIQUID PO ×2 (08:46→20:00)
--- NOTE | 2024-01-08 14:41 | P.PNPSI_ITS ---
Subjective Subjective Date of Service: 01/08/24 Reason For Visit: Major depressive disorder Subjective Notes: Conditional Voluntary Interim History: The nursing staff reported the patient had been eating well, looks internally preoccupied. The criminal justice social worker contact his and apparently the is as importance him. On interview the patient minimally verbal stating that he is not doing well. Unable to elaborate aphasic, paraplegic. Mental Status Exam Mental Status Exam Patient Appearance: Appropriate Patient Orientation: Person and Situation Level of Consciousness: Awake and Appropriate Patient Behavior: Guarded and Passive Mood Description: Withdrawn Affect Description: Constricted Patient Cognition Impaired: Yes Ability to Follow Directions: Good Speech Pattern: Clear Hallucinations: None Delusions: Not Present Thought Process: Distracted and Slowed Thinking Thought Content: positive for [place] and positive for Poverty of Content Judgement: Poor Diagnostics Vital Signs (24Hr): Vital Signs - 24 hr 01/07/24 20:00 01/08/24 08:43 Temperature 98.0 F 96.8 F Pulse Rate 94 83 Respiratory Rate 15 16 Blood Pressure 101/59 L 102/59 L Pulse Oximetry 94 98 Oxygen Delivery Method Room Air Room Air BMI result Body Mass Index 18.5 Labs 01/05/24 09:04 Medications Medications Current Medications Acetaminophen (Acetaminophen 325 Mg Tablet) 650 mg PO Q6H PRN PRN Reason: Headache/Pain Mild Scale (1-3) Al Hydroxide/Mg Hydroxide (Magnesium Hydrox/Alum Hydrox 30 Ml Oral.Susp) 30 ml PO Q6H PRN PRN Reason: Heartburn/Nausea Cyanocobalamin (Cyanocobalamin (Vitamin B-12) 1,000 Mcg Tablet) 2,000 mcg PO DAILY [facility] Last Admin: 01/08/24 08:45 Dose: 2,000 mcg Docusate Sodium (Docusate Sodium 100 Mg/10 Ml Liquid) 100 mg PO BID [facility] Last Admin: 01/08/24 08:46 Dose: 100 mg Lactic Acid (Ammonium Lactate 12 % Lotion 226 Gm Bottle) 1 appl TOPICAL BID [facility]; Protocol Magnesium Hydroxide (Milk Of Magnesia 30 Ml Oral.Susp) 30 ml PO DAILY PRN PRN Reason: Constipation Olanzapine (Olanzapine 5 Mg Tablet) 5 mg PO Q6H PRN PRN Reason: agitation Risperidone (Risperidone 1 Mg Tablet) 1 mg PO TID [facility] Last Admin: 01/08/24 08:45 Dose: 1 mg Senna/Docusate Sodium (Sennosides/Docusate Sodium Tablet) 1 tab PO BID [facility] Last Admin: 01/08/24 08:45 Dose: 1 tab Sertraline HCl (Sertraline Hcl 100 Mg Tablet) 100 mg PO DAILY [facility] Last Admin: 01/08/24 08:45 Dose: 100 mg Trazodone HCl (Trazodone Hcl 50 Mg Tablet) 50 mg PO BEDTIME MRX1 PRN PRN Reason: Insomnia Last Admin: 01/05/24 20:38 Dose: 50 mg Allergies Allergies Allergy/AdvReac Type Severity Reaction Status Date / Time Penicillins Allergy Severe Anaphylaxis Verified 01/02/24 22:42 Assessment & Plan Assessment & Plan (1) MDD (major depressive disorder): Status: Acute Code(s): F32.9 - Major depressive disorder, single episode, unspecified (2) Major neurocognitive disorder: Status: Acute Code(s): F03.90 - Unspecified dementia, unspecified severity, without behavioral disturbance, psychotic disturbance, mood disturbance, and anxiety Plan Pt is a 73-year-old male with a PMH significant for?persistent AFib not on anticoagulation, MDD with multiple suicide attempts including carbon monoxide poisoning complicated by anoxic brain injury and paraplegia, medication overdoses, cutting, and ingestion of mouthwash requiring intubation and ICU admission who is [facility] for increasing depression and SI. Patient was reportedly home with his when she witnessed him holding a knife to his wrist and making a/seeing motion. The previous week patient attempt to drink bleach. Medical consult for admission H&P. Mood disorder Plan as per Psychiatry Paroxysmal AFib Apparently not on anticoagulation Paraplegia Apparently secondary to anoxic brain injury from suicide attempt with carbon monoxide poisoning Patient positioning q.2 hours Assess for transfer status PSYCH PLAN Mr. Salinas is a 73 year-old male with hx of anoxic brain injury, depression, cognitive impairments, paraplegic who was brought to ED due to increased depression, apparently holding a knife and attempting to cut wrist, another time holding bleech bottle. He is not able to move on his own not reach to dangerous objects on his own. risk of actual harm does seem low base on fact that he is paraplegic. It is very difficult to understand. His thought process is with derailment disorganized. suspect more severe cognitive impairments. He does appear with psychosis and delusions. Pending collateral information from his shelter OP psychiatrist. PLAN 1. admit to S1, sect 12b 2. increase risperidone 1mg po BID. continue sertraline 3. pending collateral information from OP psychiatrist. This commercial lines underwriter spoke with but information is limited. Reason for continued inpatient stay Substantial Risk for: inability to function, rapid decompensation and med/psych decompensation Time Spent With Patient Time: Total time managing care of this patient today __20__ minutes.
[2024-01-08 19:58] VITALS: BP 104/70; PULSE 77; RESP 18; TEMP 36.6; O2SAT 96
[2024-01-08] MEDS: Ammonium Lactate 12 % Lotion 226 GM BOTTLE 1 APPL TOPICAL (20:21)
[2024-01-09 07:55] VITALS: BP 144/66; PULSE 68; RESP 16; TEMP 36.1; O2SAT 98
[2024-01-09] MEDS: Sertraline HCL 100 MG TABLET PO (08:48)
[2024-01-09] MEDS: Cyanocobalamin (Vitamin B-12) 1,000 MCG TABLET 2000 MCG PO (08:48)
[2024-01-09] MEDS: Sennosides/Docusate Sodium TABLET 1 TAB PO ×2 (08:48→19:31)
[2024-01-09] MEDS: Docusate Sodium 100 MG/10 ML LIQUID PO ×2 (08:49→19:31)
[2024-01-09] MEDS: risperiDONE 1 MG TABLET PO ×3 (08:49→19:31)
[2024-01-09] MEDS: Ammonium Lactate 12 % Lotion 226 GM BOTTLE 1 APPL TOPICAL ×2 (08:49→21:07)
--- NOTE | 2024-01-09 12:59 | HO.PSYCHPN ---
Subjective Subjective Date of Service: 01/09/24 Reason For Visit: Major depressive disorder Healthcare Proxy: Yes Interim History: The nursing staff reported the patient had been slightly paranoid, apparently he was able to speak softly today. The director social service reported the patient has VNA and other ancillary services at home. On interview the patient states that he is not feeling well but he was unable to elaborate due to his aphasia. Mental Status Exam Mental Status Exam Patient Appearance: Well Grooomed and Appropriate Patient Orientation: Person Level of Consciousness: Awake Patient Behavior: Guarded and Passive Mood Description: Withdrawn Affect Description: Blunted Patient Cognition Impaired: Yes Ability to Follow Directions: Good Speech Pattern: Impoverished Hallucinations: None Delusions: Ideas of Reference Thought Process: Distracted and Slowed Thinking Thought Content: positive for [place] and positive for Poverty of Content Judgement: Poor Diagnostics Vital Signs (24Hr): Vital Signs - 24 hr 01/08/24 19:58 01/09/24 07:55 Temperature 97.8 F 96.9 F Pulse Rate 77 68 Respiratory Rate 18 16 Blood Pressure 104/70 144/66 H Pulse Oximetry 96 98 Oxygen Delivery Method Room Air Room Air BMI result Body Mass Index 18.5 Labs 01/05/24 09:04 Medications Medications Current Medications Acetaminophen (Acetaminophen 325 Mg Tablet) 650 mg PO Q6H PRN PRN Reason: Headache/Pain Mild Scale (1-3) Al Hydroxide/Mg Hydroxide (Magnesium Hydrox/Alum Hydrox 30 Ml Oral.Susp) 30 ml PO Q6H PRN PRN Reason: Heartburn/Nausea Cyanocobalamin (Cyanocobalamin (Vitamin B-12) 1,000 Mcg Tablet) 2,000 mcg PO DAILY [facility] Last Admin: 01/09/24 08:48 Dose: 2,000 mcg Docusate Sodium (Docusate Sodium 100 Mg/10 Ml Liquid) 100 mg PO BID [facility] Last Admin: 01/09/24 08:49 Dose: 100 mg Lactic Acid (Ammonium Lactate 12 % Lotion 226 Gm Bottle) 1 appl TOPICAL BID [facility]; Protocol Last Admin: 01/09/24 08:49 Dose: 1 appl Magnesium Hydroxide (Milk Of Magnesia 30 Ml Oral.Susp) 30 ml PO DAILY PRN PRN Reason: Constipation Olanzapine (Olanzapine 5 Mg Tablet) 5 mg PO Q6H PRN PRN Reason: agitation Risperidone (Risperidone 1 Mg Tablet) 1 mg PO TID [facility] Last Admin: 01/09/24 08:49 Dose: 1 mg Senna/Docusate Sodium (Sennosides/Docusate Sodium Tablet) 1 tab PO BID [facility] Last Admin: 01/09/24 08:48 Dose: 1 tab Sertraline HCl (Sertraline Hcl 100 Mg Tablet) 100 mg PO DAILY [facility] Last Admin: 01/09/24 08:48 Dose: 100 mg Trazodone HCl (Trazodone Hcl 50 Mg Tablet) 50 mg PO BEDTIME MRX1 PRN PRN Reason: Insomnia Last Admin: 01/05/24 20:38 Dose: 50 mg Allergies Allergies Allergy/AdvReac Type Severity Reaction Status Date / Time Penicillins Allergy Severe Anaphylaxis Verified 01/02/24 22:42 Assessment & Plan Assessment & Plan (1) MDD (major depressive disorder): Status: Acute Code(s): F32.9 - Major depressive disorder, single episode, unspecified (2) Major neurocognitive disorder: Status: Acute Code(s): F03.90 - Unspecified dementia, unspecified severity, without behavioral disturbance, psychotic disturbance, mood disturbance, and anxiety Plan Pt is a 73-year-old male with a PMH significant for?persistent AFib not on anticoagulation, MDD with multiple suicide attempts including carbon monoxide poisoning complicated by anoxic brain injury and paraplegia, medication overdoses, cutting, and ingestion of mouthwash requiring intubation and ICU admission who is admitted [facility] for increasing depression and SI. Patient was reportedly home with his when she witnessed him holding a knife to his wrist and making a/seeing motion. The previous week patient attempt to drink bleach. Medical consult for admission H&P. Mood disorder Plan as per Psychiatry Paroxysmal AFib Apparently not on anticoagulation Paraplegia Apparently secondary to anoxic brain injury from suicide attempt with carbon monoxide poisoning Patient positioning q.2 hours Assess for transfer status PSYCH PLAN Mr. Salinas is a 73 year-old male with hx of anoxic brain injury, depression, cognitive impairments, paraplegic who was brought to ED due to increased depression, apparently holding a knife and attempting to cut wrist, another time holding bleech bottle. He is not able to move on his own not reach to dangerous objects on his own. risk of actual harm does seem low base on fact that he is paraplegic. It is very difficult to understand. His thought process is with derailment disorganized. suspect more severe cognitive impairments. He does appear with psychosis and delusions. Pending collateral information from his asphalt patcher OP psychiatrist. PLAN 1. admit to S1, sect 12b 2. increase risperidone 1mg po BID. continue sertraline 3. pending collateral information from OP psychiatrist. This grant writer spoke with but information is limited. Reason for continued inpatient stay Substantial Risk for: inability to function, rapid decompensation and med/psych decompensation Time Spent With Patient Time: Total time managing care of this patient today __20__ minutes.
[2024-01-09 19:30] VITALS: BP 95/56; PULSE 81; RESP 16; TEMP 36.5; O2SAT 97
--- NOTE | 2024-01-10 06:45 | P.PNPSI_ITS ---
Subjective Subjective Date of Service: 01/10/24 Reason For Visit: Major depressive disorder Subjective Notes: Conditional Voluntary Healthcare Proxy: Yes Interim History: The nursing staff reported the patient takes his medications crushed. Yesterday he refused to speak with his family. Remains with flat affect slept 7 hours. On interview the patient remains internally preoccupied with minimal interaction. Mental Status Exam Mental Status Exam Patient Appearance: Appropriate Patient Orientation: Person Level of Consciousness: Awake Patient Behavior: Guarded and Passive Mood Description: Withdrawn Affect Description: Blunted Patient Cognition Impaired: Yes Ability to Follow Directions: Fair Speech Pattern: Clear Hallucinations: None Delusions: Ideas of Reference Thought Process: Distracted and Slowed Thinking Thought Content: positive for [place] and positive for Poverty of Content Judgement: Poor Diagnostics Vital Signs (24Hr): Vital Signs - 24 hr 01/09/24 07:55 01/09/24 19:30 Temperature 96.9 F 97.7 F Pulse Rate 68 81 Respiratory Rate 16 16 Blood Pressure 144/66 H 95/56 L Pulse Oximetry 98 97 Oxygen Delivery Method Room Air Room Air BMI result Body Mass Index 18.5 Labs 01/05/24 09:04 Medications Medications Current Medications Acetaminophen (Acetaminophen 325 Mg Tablet) 650 mg PO Q6H PRN PRN Reason: Headache/Pain Mild Scale (1-3) Al Hydroxide/Mg Hydroxide (Magnesium Hydrox/Alum Hydrox 30 Ml Oral.Susp) 30 ml PO Q6H PRN PRN Reason: Heartburn/Nausea Cyanocobalamin (Cyanocobalamin (Vitamin B-12) 1,000 Mcg Tablet) 2,000 mcg PO DAILY [facility] Last Admin: 01/09/24 08:48 Dose: 2,000 mcg Docusate Sodium (Docusate Sodium 100 Mg/10 Ml Liquid) 100 mg PO BID [facility] Last Admin: 01/09/24 19:31 Dose: 100 mg Lactic Acid (Ammonium Lactate 12 % Lotion 226 Gm Bottle) 1 appl TOPICAL BID [facility]; Protocol Last Admin: 01/09/24 21:07 Dose: 1 appl Magnesium Hydroxide (Milk Of Magnesia 30 Ml Oral.Susp) 30 ml PO DAILY PRN PRN Reason: Constipation Olanzapine (Olanzapine 5 Mg Tablet) 5 mg PO Q6H PRN PRN Reason: agitation Risperidone (Risperidone 1 Mg Tablet) 1 mg PO TID [facility] Last Admin: 01/09/24 19:31 Dose: 1 mg Senna/Docusate Sodium (Sennosides/Docusate Sodium Tablet) 1 tab PO BID [facility] Last Admin: 01/09/24 19:31 Dose: 1 tab Sertraline HCl (Sertraline Hcl 100 Mg Tablet) 100 mg PO DAILY [facility] Last Admin: 01/09/24 08:48 Dose: 100 mg Trazodone HCl (Trazodone Hcl 50 Mg Tablet) 50 mg PO BEDTIME MRX1 PRN PRN Reason: Insomnia Last Admin: 01/05/24 20:38 Dose: 50 mg Allergies Allergies Allergy/AdvReac Type Severity Reaction Status Date / Time Penicillins Allergy Severe Anaphylaxis Verified 01/02/24 22:42 Assessment & Plan Assessment & Plan (1) MDD (major depressive disorder): Status: Acute Code(s): F32.9 - Major depressive disorder, single episode, unspecified (2) Major neurocognitive disorder: Status: Acute Code(s): F03.90 - Unspecified dementia, unspecified severity, without behavioral disturbance, psychotic disturbance, mood disturbance, and anxiety Plan Pt is a 73-year-old male with a PMH significant for?persistent AFib not on anticoagulation, MDD with multiple suicide attempts including carbon monoxide poisoning complicated by anoxic brain injury and paraplegia, medication overdoses, cutting, and ingestion of mouthwash requiring intubation and ICU admission who is [facility] for increasing depression and SI. Patient was reportedly home with his when she witnessed him holding a knife to his wrist and making a/seeing motion. The previous week patient attempt to drink bleach. Medical consult for admission H&P. Mood disorder Plan as per Psychiatry Paroxysmal AFib Apparently not on anticoagulation Paraplegia Apparently secondary to anoxic brain injury from suicide attempt with carbon monoxide poisoning Patient positioning q.2 hours Assess for transfer status PSYCH PLAN Mr. Salinas is a 73 year-old male with hx of anoxic brain injury, depression, cognitive impairments, paraplegic who was brought to ED due to increased depression, apparently holding a knife and attempting to cut wrist, another time holding bleech bottle. He is not able to move on his own not reach to dangerous objects on his own. risk of actual harm does seem low base on fact that he is paraplegic. It is very difficult to understand. His thought process is with derailment disorganized. suspect more severe cognitive impairments. He does appear with psychosis and delusions. Pending collateral information from his computer terminal operator OP psychiatrist. PLAN 1. admit to S1, sect 12b 2. increase risperidone 1mg po BID. continue sertraline 3. pending collateral information from OP psychiatrist. This adjusto writer operator spoke with but information is limited. Reason for continued inpatient stay Substantial Risk for: inability to function, rapid decompensation and med/psych decompensation Time Spent With Patient Time: Total time managing care of this patient today __20__ minutes.
[2024-01-10 08:50] VITALS: BP 119/75; PULSE 82; RESP 16; TEMP 36.7; O2SAT 99
[2024-01-10] MEDS: Docusate Sodium 100 MG/10 ML LIQUID PO ×2 (09:58→20:19)
[2024-01-10] MEDS: Cyanocobalamin (Vitamin B-12) 1,000 MCG TABLET 2000 MCG PO (09:59)
[2024-01-10] MEDS: risperiDONE 1 MG TABLET PO ×3 (09:59→20:19)
[2024-01-10] MEDS: Ammonium Lactate 12 % Lotion 226 GM BOTTLE 1 APPL TOPICAL ×2 (09:59→20:19)
[2024-01-10] MEDS: Sennosides/Docusate Sodium TABLET 1 TAB PO ×2 (10:00→20:19)
[2024-01-10] MEDS: Sertraline HCL 100 MG TABLET PO (10:00)
[2024-01-10 20:00] VITALS: BP 111/60; PULSE 86; RESP 16; TEMP 36.8; O2SAT 100
[2024-01-11 09:22] VITALS: BP 92/58; PULSE 83; TEMP 36.3; O2SAT 98
[2024-01-11] MEDS: Sertraline HCL 100 MG TABLET PO (09:42)
[2024-01-11] MEDS: Sennosides/Docusate Sodium TABLET 1 TAB PO ×2 (09:42→19:50)
[2024-01-11] MEDS: Cyanocobalamin (Vitamin B-12) 1,000 MCG TABLET 2000 MCG PO (09:42)
[2024-01-11] MEDS: risperiDONE 1 MG TABLET PO ×3 (09:42→19:50)
[2024-01-11] MEDS: Ammonium Lactate 12 % Lotion 226 GM BOTTLE 1 APPL TOPICAL ×2 (09:42→19:51)
[2024-01-11] MEDS: Docusate Sodium 100 MG/10 ML LIQUID PO ×2 (09:42→19:50)
--- NOTE | 2024-01-11 12:06 | P.PNPSI_ITS ---
Subjective Subjective Date of Service: 01/11/24 Reason For Visit: Major depressive disorder Subjective Notes: Conditional Voluntary Interim History: The nursing staff reported the patient had been more functional he looks like. According to his brother's report the patient has learn how to be treated by himself. He was seen eating by himself when he was not with help. On interview the patient denies new symptoms he states that he feels bad. Mental Status Exam Mental Status Exam Patient Appearance: Appropriate Patient Orientation: Person and Situation Level of Consciousness: Awake and Appropriate Patient Behavior: Guarded and Passive Mood Description: Withdrawn Affect Description: Constricted Patient Cognition Impaired: Yes Ability to Follow Directions: Good Speech Pattern: Clear Hallucinations: None Delusions: Not Present Thought Process: Distracted and Slowed Thinking Thought Content: positive for [place] and positive for Poverty of Content Judgement: Poor Diagnostics Vital Signs (24Hr): Vital Signs - 24 hr 01/10/24 20:00 01/11/24 09:22 Temperature 98.3 F 97.4 F Pulse Rate 86 83 Respiratory Rate 16 Blood Pressure 111/60 92/58 L Pulse Oximetry 100 98 Oxygen Delivery Method Room Air Room Air BMI result Body Mass Index 18.5 Labs 01/05/24 09:04 Medications Medications Current Medications Acetaminophen (Acetaminophen 325 Mg Tablet) 650 mg PO Q6H PRN PRN Reason: Headache/Pain Mild Scale (1-3) Al Hydroxide/Mg Hydroxide (Magnesium Hydrox/Alum Hydrox 30 Ml Oral.Susp) 30 ml PO Q6H PRN PRN Reason: Heartburn/Nausea Cyanocobalamin (Cyanocobalamin (Vitamin B-12) 1,000 Mcg Tablet) 2,000 mcg PO DAILY [facility] Last Admin: 01/11/24 09:42 Dose: 2,000 mcg Docusate Sodium (Docusate Sodium 100 Mg/10 Ml Liquid) 100 mg PO BID [facility] Last Admin: 01/11/24 09:42 Dose: 100 mg Lactic Acid (Ammonium Lactate 12 % Lotion 226 Gm Bottle) 1 appl TOPICAL BID [facility]; Protocol Last Admin: 01/11/24 09:42 Dose: 1 appl Magnesium Hydroxide (Milk Of Magnesia 30 Ml Oral.Susp) 30 ml PO DAILY PRN PRN Reason: Constipation Olanzapine (Olanzapine 5 Mg Tablet) 5 mg PO Q6H PRN PRN Reason: agitation Risperidone (Risperidone 1 Mg Tablet) 1 mg PO TID [facility] Last Admin: 01/11/24 09:42 Dose: 1 mg Senna/Docusate Sodium (Sennosides/Docusate Sodium Tablet) 1 tab PO BID [facility] Last Admin: 01/11/24 09:42 Dose: 1 tab Sertraline HCl (Sertraline Hcl 100 Mg Tablet) 100 mg PO DAILY [facility] Last Admin: 01/11/24 09:42 Dose: 100 mg Trazodone HCl (Trazodone Hcl 50 Mg Tablet) 50 mg PO BEDTIME MRX1 PRN PRN Reason: Insomnia Last Admin: 01/05/24 20:38 Dose: 50 mg Allergies Allergies Allergy/AdvReac Type Severity Reaction Status Date / Time Penicillins Allergy Severe Anaphylaxis Verified 01/02/24 22:42 Assessment & Plan Assessment & Plan (1) MDD (major depressive disorder): Status: Acute Code(s): F32.9 - Major depressive disorder, single episode, unspecified (2) Major neurocognitive disorder: Status: Acute Code(s): F03.90 - Unspecified dementia, unspecified severity, without behavioral disturbance, psychotic disturbance, mood disturbance, and anxiety Plan Pt is a 73-year-old male with a PMH significant for?persistent AFib not on anticoagulation, MDD with multiple suicide attempts including carbon monoxide poisoning complicated by anoxic brain injury and paraplegia, medication overdoses, cutting, and ingestion of mouthwash requiring intubation and ICU admission who is [facility] for increasing depression and SI. Patient was reportedly home with his when she witnessed him holding a knife to his wrist and making a/seeing motion. The previous week patient attempt to drink bleach. Medical consult for admission H&P. Mood disorder Plan as per Psychiatry Paroxysmal AFib Apparently not on anticoagulation Paraplegia Apparently secondary to anoxic brain injury from suicide attempt with carbon monoxide poisoning Patient positioning q.2 hours Assess for transfer status PSYCH PLAN Mr. Salinas is a 73 year-old male with hx of anoxic brain injury, depression, cognitive impairments, paraplegic who was brought to ED due to increased depression, apparently holding a knife and attempting to cut wrist, another time holding bleech bottle. He is not able to move on his own not reach to dangerous objects on his own. risk of actual harm does seem low base on fact that he is paraplegic. It is very difficult to understand. His thought process is with derailment disorganized. suspect more severe cognitive impairments. He does appear with psychosis and delusions. Pending collateral information [facility]. PLAN 1. admit to S1, sect 12b 2. increase risperidone 1mg po BID. continue sertraline 3. pending collateral information from OP psychiatrist. This typewriter assembly and parts inspector spoke with but information is limited. Reason for continued inpatient stay Substantial Risk for: inability to function, rapid decompensation and med/psych decompensation Time Spent With Patient Time: Total time managing care of this patient today __20__ minutes.
[2024-01-11 19:46] VITALS: BP 121/62; PULSE 84; RESP 17; TEMP 36.6; O2SAT 97
[2024-01-12] MEDS: Cyanocobalamin (Vitamin B-12) 1,000 MCG TABLET 2000 MCG PO (09:16)
[2024-01-12] MEDS: Docusate Sodium 100 MG/10 ML LIQUID PO ×2 (09:16→19:52)
[2024-01-12] MEDS: risperiDONE 1 MG TABLET PO ×3 (09:16→19:52)
[2024-01-12] MEDS: Sertraline HCL 100 MG TABLET PO (09:16)
[2024-01-12] MEDS: Sennosides/Docusate Sodium TABLET 1 TAB PO ×2 (09:16→19:52)
[2024-01-12] MEDS: Ammonium Lactate 12 % Lotion 226 GM BOTTLE 1 APPL TOPICAL ×2 (09:18→19:52)
[2024-01-12 09:33] VITALS: BP 124/75; PULSE 76; RESP 17; TEMP 36; O2SAT 97
--- NOTE | 2024-01-12 13:19 | P.PNPSI_ITS ---
Subjective Subjective Date of Service: 01/12/24 Reason For Visit: Major depressive disorder Subjective Notes: Conditional Voluntary Interim History: The nursing staff reported the patient had been compliant with treatment. The neonatal social worker reported that we will call the [facility]NA and start working on discharge planning. On interview the patient denies new symptoms. Mental Status Exam Mental Status Exam Patient Appearance: Appropriate Patient Orientation: Person Level of Consciousness: Awake and Appropriate Patient Behavior: Guarded and Passive Mood Description: Withdrawn Affect Description: Constricted Patient Cognition Impaired: Yes Ability to Follow Directions: Good Speech Pattern: Clear Hallucinations: None Delusions: Ideas of Reference Thought Process: Distracted and Slowed Thinking Thought Content: positive for [place] and positive for Poverty of Content Judgement: Fair Diagnostics Vital Signs (24Hr): Vital Signs - 24 hr 01/11/24 19:46 01/12/24 09:33 Temperature 98 F 96.8 F Pulse Rate 84 76 Respiratory Rate 17 17 Blood Pressure 121/62 124/75 Pulse Oximetry 97 97 Oxygen Delivery Method Room Air Room Air BMI result Body Mass Index 18.5 Labs 01/05/24 09:04 Medications Medications Current Medications Acetaminophen (Acetaminophen 325 Mg Tablet) 650 mg PO Q6H PRN PRN Reason: Headache/Pain Mild Scale (1-3) Al Hydroxide/Mg Hydroxide (Magnesium Hydrox/Alum Hydrox 30 Ml Oral.Susp) 30 ml PO Q6H PRN PRN Reason: Heartburn/Nausea Cyanocobalamin (Cyanocobalamin (Vitamin B-12) 1,000 Mcg Tablet) 2,000 mcg PO DAILY [facility] Last Admin: 01/12/24 09:16 Dose: 2,000 mcg Docusate Sodium (Docusate Sodium 100 Mg/10 Ml Liquid) 100 mg PO BID [facility] Last Admin: 01/12/24 09:16 Dose: 100 mg Lactic Acid (Ammonium Lactate 12 % Lotion 226 Gm Bottle) 1 appl TOPICAL BID [facility]; Protocol Last Admin: 01/12/24 09:18 Dose: 1 appl Magnesium Hydroxide (Milk Of Magnesia 30 Ml Oral.Susp) 30 ml PO DAILY PRN PRN Reason: Constipation Olanzapine (Olanzapine 5 Mg Tablet) 5 mg PO Q6H PRN PRN Reason: agitation Risperidone (Risperidone 1 Mg Tablet) 1 mg PO TID [facility] Last Admin: 01/12/24 09:16 Dose: 1 mg Senna/Docusate Sodium (Sennosides/Docusate Sodium Tablet) 1 tab PO BID [facility] Last Admin: 01/12/24 09:16 Dose: 1 tab Sertraline HCl (Sertraline Hcl 100 Mg Tablet) 100 mg PO DAILY [facility] Last Admin: 01/12/24 09:16 Dose: 100 mg Trazodone HCl (Trazodone Hcl 50 Mg Tablet) 50 mg PO BEDTIME MRX1 PRN PRN Reason: Insomnia Last Admin: 01/05/24 20:38 Dose: 50 mg Allergies Allergies Allergy/AdvReac Type Severity Reaction Status Date / Time Penicillins Allergy Severe Anaphylaxis Verified 01/02/24 22:42 Assessment & Plan Assessment & Plan (1) MDD (major depressive disorder): Status: Acute Code(s): F32.9 - Major depressive disorder, single episode, unspecified (2) Major neurocognitive disorder: Status: Acute Code(s): F03.90 - Unspecified dementia, unspecified severity, without behavioral disturbance, psychotic disturbance, mood disturbance, and anxiety Plan Pt is a 73-year-old male with a PMH significant for?persistent AFib not on anticoagulation, MDD with multiple suicide attempts including carbon monoxide poisoning complicated by anoxic brain injury and paraplegia, medication overdoses, cutting, and ingestion of mouthwash requiring intubation and ICU admission who is [facility] for increasing depression and SI. Patient was reportedly home with his when she witnessed him holding a knife to his wrist and making a/seeing motion. The previous week patient attempt to drink bleach. Medical consult for admission H&P. Mood disorder Plan as per Psychiatry Paroxysmal AFib Apparently not on anticoagulation Paraplegia Apparently secondary to anoxic brain injury from suicide attempt with carbon monoxide poisoning Patient positioning q.2 hours Assess for transfer status PSYCH PLAN Mr. Salinas is a 73 year-old male with hx of anoxic brain injury, depression, cognitive impairments, paraplegic who was brought to ED due to increased depression, apparently holding a knife and attempting to cut wrist, another time holding bleech bottle. He is not able to move on his own not reach to dangerous objects on his own. risk of actual harm does seem low base on fact that he is paraplegic. It is very difficult to understand. His thought process is with derailment disorganized. suspect more severe cognitive impairments. He does appear with psychosis and delusions. Pending collateral information from his terminal block assembler OP psychiatrist. PLAN 1. admit to S1, sect 12b 2. increase risperidone 1mg po BID. continue sertraline 3. pending collateral information from OP psychiatrist. This typewriter assembler spoke with but information is limited. Reason for continued inpatient stay Substantial Risk for: inability to function, rapid decompensation and med/psych decompensation Time Spent With Patient Time: Total time managing care of this patient today _20___ minutes.
[2024-01-12 19:47] VITALS: BP 104/60; PULSE 89; RESP 18; TEMP 36.8; O2SAT 96
[2024-01-13 08:32] VITALS: BP 101/63; PULSE 75; RESP 16; TEMP 36.3; O2SAT 98
[2024-01-13] MEDS: Sennosides/Docusate Sodium TABLET 1 TAB PO ×2 (08:37→20:22)
[2024-01-13] MEDS: Sertraline HCL 100 MG TABLET PO (08:37)
[2024-01-13] MEDS: Cyanocobalamin (Vitamin B-12) 1,000 MCG TABLET 2000 MCG PO (08:37)
[2024-01-13] MEDS: Docusate Sodium 100 MG/10 ML LIQUID PO ×2 (08:37→20:21)
[2024-01-13] MEDS: risperiDONE 1 MG TABLET PO ×3 (08:37→20:22)
[2024-01-13] MEDS: Ammonium Lactate 12 % Lotion 226 GM BOTTLE 1 APPL TOPICAL ×2 (08:40→20:22)
--- NOTE | 2024-01-13 13:16 | HO.PSYCHPN ---
Subjective Subjective Date of Service: 01/13/24 Reason For Visit: Major depressive disorder Subjective Notes: Conditional Voluntary Interim History: The nursing staff reported the patient is perseverative stating that he is bad. He slept 4 hours. On interview the patient denies new symptoms still perseverative. No changes in his mental status no evidence of unsafe behaviors. Mental Status Exam Mental Status Exam Patient Appearance: Appropriate Patient Orientation: Person and Situation Level of Consciousness: Awake and Appropriate Patient Behavior: Guarded and Passive Mood Description: Withdrawn Affect Description: Blunted Patient Cognition Impaired: Yes Ability to Follow Directions: Good Speech Pattern: Clear Hallucinations: None Delusions: Not Present Thought Process: Distracted and Slowed Thinking Thought Content: positive for [place] and positive for Poverty of Content Judgement: Fair Diagnostics Vital Signs (24Hr): Vital Signs - 24 hr 01/12/24 19:47 01/13/24 08:32 Temperature 98.2 F 97.3 F Pulse Rate 89 75 Respiratory Rate 18 16 Blood Pressure 104/60 101/63 Pulse Oximetry 96 98 Oxygen Delivery Method Room Air Room Air BMI result Body Mass Index 18.5 Labs 01/05/24 09:04 Medications Medications Current Medications Acetaminophen (Acetaminophen 325 Mg Tablet) 650 mg PO Q6H PRN PRN Reason: Headache/Pain Mild Scale (1-3) Al Hydroxide/Mg Hydroxide (Magnesium Hydrox/Alum Hydrox 30 Ml Oral.Susp) 30 ml PO Q6H PRN PRN Reason: Heartburn/Nausea Cyanocobalamin (Cyanocobalamin (Vitamin B-12) 1,000 Mcg Tablet) 2,000 mcg PO DAILY [facility] Last Admin: 01/13/24 08:37 Dose: 2,000 mcg Docusate Sodium (Docusate Sodium 100 Mg/10 Ml Liquid) 100 mg PO BID [facility] Last Admin: 01/13/24 08:37 Dose: 100 mg Lactic Acid (Ammonium Lactate 12 % Lotion 226 Gm Bottle) 1 appl TOPICAL BID [facility]; Protocol Last Admin: 01/13/24 08:40 Dose: 1 appl Magnesium Hydroxide (Milk Of Magnesia 30 Ml Oral.Susp) 30 ml PO DAILY PRN PRN Reason: Constipation Olanzapine (Olanzapine 5 Mg Tablet) 5 mg PO Q6H PRN PRN Reason: agitation Risperidone (Risperidone 1 Mg Tablet) 1 mg PO TID [facility] Last Admin: 01/13/24 08:37 Dose: 1 mg Senna/Docusate Sodium (Sennosides/Docusate Sodium Tablet) 1 tab PO BID [facility] Last Admin: 01/13/24 08:37 Dose: 1 tab Sertraline HCl (Sertraline Hcl 100 Mg Tablet) 100 mg PO DAILY [facility] Last Admin: 01/13/24 08:37 Dose: 100 mg Trazodone HCl (Trazodone Hcl 50 Mg Tablet) 50 mg PO BEDTIME MRX1 PRN PRN Reason: Insomnia Last Admin: 01/05/24 20:38 Dose: 50 mg Allergies Allergies Allergy/AdvReac Type Severity Reaction Status Date / Time Penicillins Allergy Severe Anaphylaxis Verified 01/02/24 22:42 Assessment & Plan Assessment & Plan (1) MDD (major depressive disorder): Status: Acute Code(s): F32.9 - Major depressive disorder, single episode, unspecified (2) Major neurocognitive disorder: Status: Acute Code(s): F03.90 - Unspecified dementia, unspecified severity, without behavioral disturbance, psychotic disturbance, mood disturbance, and anxiety Plan Pt is a 73-year-old male with a PMH significant for?persistent AFib not on anticoagulation, MDD with multiple suicide attempts including carbon monoxide poisoning complicated by anoxic brain injury and paraplegia, medication overdoses, cutting, and ingestion of mouthwash requiring intubation and ICU admission who is admitted [facility] for increasing depression and SI. Patient was reportedly home with his when she witnessed him holding a knife to his wrist and making a/seeing motion. The previous week patient attempt to drink bleach. Medical consult for admission H&P. Mood disorder Plan as per Psychiatry Paroxysmal AFib Apparently not on anticoagulation Paraplegia Apparently secondary to anoxic brain injury from suicide attempt with carbon monoxide poisoning Patient positioning q.2 hours Assess for transfer status PSYCH PLAN Mr. Salinas is a 73 year-old male with hx of anoxic brain injury, depression, cognitive impairments, paraplegic who was brought to ED due to increased depression, apparently holding a knife and attempting to cut wrist, another time holding bleech bottle. He is not able to move on his own not reach to dangerous objects on his own. risk of actual harm does seem low base on fact that he is paraplegic. It is very difficult to understand. His thought process is with derailment disorganized. suspect more severe cognitive impairments. He does appear with psychosis and delusions. Pending collateral information from his desk sergeant OP psychiatrist. PLAN 1. admit to S1, sect 12b 2. increase risperidone 1mg po BID. continue sertraline 3. pending collateral information from OP psychiatrist. This fiction writer spoke with but information is limited. Reason for continued inpatient stay Substantial Risk for: inability to function, rapid decompensation and med/psych decompensation Time Spent With Patient Time: Total time managing care of this patient today __20__ minutes.
--- NOTE | 2024-01-13 16:17 | HO.WOUND ---
Wound Consult: Follow up 73yr old?male admitted to the [facility] Unit at [facility] on 01/02/24 - See progress notes and H&P for detailed history.? Wound consult follow up for bilateral feet and face wounds.?Face areas remains with pink red dry areas no open wounds noted - no topical recommendations needed. Bilateral feet assessed - they continue with thickened dry scaling hyperpigmented hyperkeratotic tissue however appears softer than initial assessment - no new recommendations needed at this time continue with topical cream per providers orders. However of note the left foot at initial assessment had a dry lifting scale that was removed when assessing his foot at the time revealed intact pink tissue. At todays assessment the left foot is noted for purple maroon pigmentation remains intact but given the reaction to the scale being removed would not recommend lifting any scales in future until they flake off on their own. No new topical recommendations needed at this time. From last assessment: Discussed with direct care nurse she reports the patient has concerns to the left foot with dry thickened tissue unconcerned for facial area. Patient agreeable to assessment. Bilateral socks removed - no pressure injuries noted. The left foot is noted for thickened dry scaling tissue. Large dry patch to dorsal area of foot easily removed revealing intact tissue. No open wounds noted recommend provider to consider Ammonium Lactate to aid in softening the epidermal layer which will allow for easier removal when cleansing occurs. The face was assessed there are bilateral reddened areas on each cheek, etiology unclear patient was not able to verbally report the cause but he did try to communicate when asked. The areas appear to be scratches - when I asked the patient about them he brought his hand to them and attempted to verbally communicate something to me but I was not able to decipher what he was telling me. I would recommend moisture to the areas. It is unclear if they are open wounds or red pink pigmentation changes. Please reconsult inpt wound care nurse if wound develops or is observable. The patient at baseline is paraplegic and will benefit from PIP (Pressure Injury Prevention) Interventions as listed below. Recommendations: 1. Turn and Reposition every 2 hours and as needed for patient comfort.? Use pillows or wedges to support off loading positions. Use waffle cushion when up to a chair. 2. Off Load all bony prominences with use of pillows and heel boots if needed.? Apply Preventative foams where needed. ? 3. Monitor for incontinence and moisture control, use barrier creams when needed for prevention and treatment. 4. Provide adequate and supplemental nutrition.? 5. Continue low air loss mattress. 6. Bilateral Feet - Routine Cleansing, dry well. Apply Ammonium Lactate cream per provider order, twice daily. Re-consult wound care Nurse for wound deterioration or wound changes.
[2024-01-13 20:00] VITALS: BP 116/64; PULSE 69; RESP 18; TEMP 36.6; O2SAT 97
[2024-01-13] MEDS: traZODone HCL 50 MG TABLET PO (20:22)
[2024-01-14] MEDS: traZODone HCL 50 MG TABLET PO ×2 (02:27→21:43)
[2024-01-14] MEDS: Acetaminophen 325 MG TABLET 650 MG PO (02:27)
--- NOTE | 2024-01-14 08:20 | HO.PSYCHPN ---
Subjective Subjective Date of Service: 01/14/24 Reason For Visit: Major depressive disorder Subjective Notes: Conditional Voluntary Healthcare Proxy: Yes Interim History: The nursing staff reported the patient had been compliant with treatment. On interview the patient reported he is feeling bad. No changes in mental status. Mental Status Exam Mental Status Exam Patient Appearance: Appropriate Patient Orientation: Person Level of Consciousness: Awake Patient Behavior: Guarded and Passive Mood Description: Withdrawn Affect Description: Constricted Patient Cognition Impaired: Yes Ability to Follow Directions: Good Speech Pattern: Clear Hallucinations: None Delusions: Not Present Thought Process: Distracted and Slowed Thinking Thought Content: positive for [place] and positive for Poverty of Content Judgement: Fair Diagnostics Vital Signs (24Hr): Vital Signs - 24 hr 01/13/24 08:32 01/13/24 20:00 Temperature 97.3 F 97.8 F Pulse Rate 75 69 Respiratory Rate 16 18 Blood Pressure 101/63 116/64 Pulse Oximetry 98 97 Oxygen Delivery Method Room Air Room Air BMI result Body Mass Index 18.5 Labs 01/05/24 09:04 Medications Medications Current Medications Acetaminophen (Acetaminophen 325 Mg Tablet) 650 mg PO Q6H PRN PRN Reason: Headache/Pain Mild Scale (1-3) Last Admin: 01/14/24 02:27 Dose: 650 mg Al Hydroxide/Mg Hydroxide (Magnesium Hydrox/Alum Hydrox 30 Ml Oral.Susp) 30 ml PO Q6H PRN PRN Reason: Heartburn/Nausea Cyanocobalamin (Cyanocobalamin (Vitamin B-12) 1,000 Mcg Tablet) 2,000 mcg PO DAILY [facility] Last Admin: 01/13/24 08:37 Dose: 2,000 mcg Docusate Sodium (Docusate Sodium 100 Mg/10 Ml Liquid) 100 mg PO BID [facility] Last Admin: 01/13/24 20:21 Dose: 100 mg Lactic Acid (Ammonium Lactate 12 % Lotion 226 Gm Bottle) 1 appl TOPICAL BID [facility]; Protocol Last Admin: 01/13/24 20:22 Dose: 1 appl Magnesium Hydroxide (Milk Of Magnesia 30 Ml Oral.Susp) 30 ml PO DAILY PRN PRN Reason: Constipation Olanzapine (Olanzapine 5 Mg Tablet) 5 mg PO Q6H PRN PRN Reason: agitation Risperidone (Risperidone 1 Mg Tablet) 1 mg PO TID [facility] Last Admin: 01/13/24 20:22 Dose: 1 mg Senna/Docusate Sodium (Sennosides/Docusate Sodium Tablet) 1 tab PO BID [facility] Last Admin: 01/13/24 20:22 Dose: 1 tab Sertraline HCl (Sertraline Hcl 100 Mg Tablet) 100 mg PO DAILY [facility] Last Admin: 01/13/24 08:37 Dose: 100 mg Trazodone HCl (Trazodone Hcl 50 Mg Tablet) 50 mg PO BEDTIME MRX1 PRN PRN Reason: Insomnia Last Admin: 01/14/24 02:27 Dose: 50 mg Allergies Allergies Allergy/AdvReac Type Severity Reaction Status Date / Time Penicillins Allergy Severe Anaphylaxis Verified 01/02/24 22:42 Assessment & Plan Assessment & Plan (1) MDD (major depressive disorder): Status: Acute Code(s): F32.9 - Major depressive disorder, single episode, unspecified (2) Major neurocognitive disorder: Status: Acute Code(s): F03.90 - Unspecified dementia, unspecified severity, without behavioral disturbance, psychotic disturbance, mood disturbance, and anxiety Plan Pt is a 73-year-old male with a PMH significant for?persistent AFib not on anticoagulation, MDD with multiple suicide attempts including carbon monoxide poisoning complicated by anoxic brain injury and paraplegia, medication overdoses, cutting, and ingestion of mouthwash requiring intubation and ICU admission who is admitted [facility] for increasing depression and SI. Patient was reportedly home with his when she witnessed him holding a knife to his wrist and making a/seeing motion. The previous week patient attempt to drink bleach. Medical consult for admission H&P. Mood disorder Plan as per Psychiatry Paroxysmal AFib Apparently not on anticoagulation Paraplegia Apparently secondary to anoxic brain injury from suicide attempt with carbon monoxide poisoning Patient positioning q.2 hours Assess for transfer status PSYCH PLAN Mr. Salinas is a 73 year-old male with hx of anoxic brain injury, depression, cognitive impairments, paraplegic who was brought to ED due to increased depression, apparently holding a knife and attempting to cut wrist, another time holding bleech bottle. He is not able to move on his own not reach to dangerous objects on his own. risk of actual harm does seem low base on fact that he is paraplegic. It is very difficult to understand. His thought process is with derailment disorganized. suspect more severe cognitive impairments. He does appear with psychosis and delusions. Pending collateral information from his shelter OP psychiatrist. PLAN 1. admit to S1, sect 12b 2. increase risperidone 1mg po BID. continue sertraline 3. pending collateral information from OP psychiatrist. This creative writer spoke with but information is limited. Reason for continued inpatient stay Substantial Risk for: inability to function, rapid decompensation and med/psych decompensation Time Spent With Patient Time: Total time managing care of this patient today _20___ minutes.
[2024-01-14 09:50] VITALS: BP 103/57; PULSE 92; RESP 18; TEMP 36.8; O2SAT 99
[2024-01-14] MEDS: Ammonium Lactate 12 % Lotion 226 GM BOTTLE 1 APPL TOPICAL ×2 (09:52→21:44)
[2024-01-14] MEDS: Cyanocobalamin (Vitamin B-12) 1,000 MCG TABLET 2000 MCG PO (09:52)
[2024-01-14] MEDS: Sennosides/Docusate Sodium TABLET 1 TAB PO ×2 (09:52→21:43)
[2024-01-14] MEDS: Sertraline HCL 100 MG TABLET PO (09:52)
[2024-01-14] MEDS: Docusate Sodium 100 MG/10 ML LIQUID PO ×2 (09:52→21:43)
[2024-01-14] MEDS: risperiDONE 1 MG TABLET PO ×3 (09:52→21:43)
--- NOTE | 2024-01-14 16:07 | MHC.CLN ---
F/U REGULAR DIET. ENSURE TID PROVIDES ADDITIONAL 1050 KCALS, 60 G PROTEIN. PO INTAKE USUALLY VERY GOOD. NO NOTED REDNESS TO COCCYX. FOLLOW FOR PO INTAKE AND WEIGHT. RD TO FOLLOW WEEKLY.
[2024-01-14 20:00] VITALS: BP 107/67; PULSE 71; RESP 15; TEMP 36.4; O2SAT 97
[2024-01-15 08:00] VITALS: BP 125/70; PULSE 88; RESP 16; O2SAT 99
[2024-01-15] MEDS: Sennosides/Docusate Sodium TABLET 1 TAB PO ×2 (08:22→21:50)
[2024-01-15] MEDS: risperiDONE 1 MG TABLET PO ×3 (08:22→21:50)
[2024-01-15] MEDS: Cyanocobalamin (Vitamin B-12) 1,000 MCG TABLET 2000 MCG PO (08:22)
[2024-01-15] MEDS: Docusate Sodium 100 MG/10 ML LIQUID PO ×2 (08:23→21:50)
[2024-01-15] MEDS: Sertraline HCL 100 MG TABLET PO (08:23)
[2024-01-15] MEDS: Ammonium Lactate 12 % Lotion 226 GM BOTTLE 1 APPL TOPICAL ×2 (11:20→22:16)
--- NOTE | 2024-01-15 19:18 | HO.PSYCHPN ---
Subjective Subjective Date of Service: 01/15/24 Reason For Visit: Major depressive disorder Interim History: Met with patient; discussed with team Patient difficult with which to engage in discussion. He says I'm bad... But but no elaboration... Says the world can not live for ever. Staff reports that he is sleeping and eating well, taking his meds, without any aggression. Mental Status Exam Mental Status Exam Patient Appearance: Unkempt Patient Orientation: Person Level of Consciousness: Awake Patient Behavior: Passive and Poor Eye Contact Mood Description: Withdrawn ( i'm bad ) Affect Description: Withdrawn Patient Cognition Impaired: Yes Ability to Follow Directions: Fair Hallucinations: None Delusions: Not Present Thought Process: Distracted and Slowed Thinking Thought Content: positive for [place] and positive for Poverty of Content Judgement and Insight: impaired Diagnostics Vital Signs (24Hr): Vital Signs - 24 hr 01/14/24 20:00 01/15/24 08:00 Temperature 97.5 F Pulse Rate 71 88 Respiratory Rate 15 16 Blood Pressure 107/67 125/70 Pulse Oximetry 97 99 Oxygen Delivery Method Room Air Room Air BMI result Body Mass Index 18.5 Labs 01/05/24 09:04 Medications Medications Current Medications Acetaminophen (Acetaminophen 325 Mg Tablet) 650 mg PO Q6H PRN PRN Reason: Headache/Pain Mild Scale (1-3) Last Admin: 01/14/24 02:27 Dose: 650 mg Al Hydroxide/Mg Hydroxide (Magnesium Hydrox/Alum Hydrox 30 Ml Oral.Susp) 30 ml PO Q6H PRN PRN Reason: Heartburn/Nausea Cyanocobalamin (Cyanocobalamin (Vitamin B-12) 1,000 Mcg Tablet) 2,000 mcg PO DAILY [facility] Last Admin: 01/15/24 08:22 Dose: 2,000 mcg Docusate Sodium (Docusate Sodium 100 Mg/10 Ml Liquid) 100 mg PO BID [facility] Last Admin: 01/15/24 08:23 Dose: 100 mg Lactic Acid (Ammonium Lactate 12 % Lotion 226 Gm Bottle) 1 appl TOPICAL BID [facility]; Protocol Last Admin: 01/15/24 11:20 Dose: 1 appl Magnesium Hydroxide (Milk Of Magnesia 30 Ml Oral.Susp) 30 ml PO DAILY PRN PRN Reason: Constipation Olanzapine (Olanzapine 5 Mg Tablet) 5 mg PO Q6H PRN PRN Reason: agitation Risperidone (Risperidone 1 Mg Tablet) 1 mg PO TID [facility] Last Admin: 01/15/24 14:05 Dose: 1 mg Senna/Docusate Sodium (Sennosides/Docusate Sodium Tablet) 1 tab PO BID [facility] Last Admin: 01/15/24 08:22 Dose: 1 tab Sertraline HCl (Sertraline Hcl 100 Mg Tablet) 100 mg PO DAILY [facility] Last Admin: 01/15/24 08:23 Dose: 100 mg Trazodone HCl (Trazodone Hcl 50 Mg Tablet) 50 mg PO BEDTIME MRX1 PRN PRN Reason: Insomnia Last Admin: 01/14/24 21:43 Dose: 50 mg Allergies Allergies Allergy/AdvReac Type Severity Reaction Status Date / Time Penicillins Allergy Severe Anaphylaxis Verified 01/02/24 22:42 Assessment & Plan Assessment & Plan (1) MDD (major depressive disorder): Status: Acute Code(s): F32.9 - Major depressive disorder, single episode, unspecified (2) Major neurocognitive disorder: Status: Acute Code(s): F03.90 - Unspecified dementia, unspecified severity, without behavioral disturbance, psychotic disturbance, mood disturbance, and anxiety Plan Pt is a 73-year-old male with a PMH significant for?persistent AFib not on anticoagulation, MDD with multiple suicide attempts including carbon monoxide poisoning complicated by anoxic brain injury and paraplegia, medication overdoses, cutting, and ingestion of mouthwash requiring intubation and ICU admission who is admitted [facility] for increasing depression and SI. Patient was reportedly home with his when she witnessed him holding a knife to his wrist and making a/seeing motion. The previous week patient attempt to drink bleach. Medical consult for admission H&P. Mood disorder Plan as per Psychiatry Paroxysmal AFib Apparently not on anticoagulation Paraplegia Apparently secondary to anoxic brain injury from suicide attempt with carbon monoxide poisoning Patient positioning q.2 hours Assess for transfer status PSYCH PLAN Mr. Salinas is a 73 year-old male with hx of anoxic brain injury, depression, cognitive impairments, paraplegic who was brought to ED due to increased depression, apparently holding a knife and attempting to cut wrist, another time holding bleech bottle. He is not able to move on his own not reach to dangerous objects on his own. risk of actual harm does seem low base on fact that he is paraplegic. It is very difficult to understand. His thought process is with derailment disorganized. suspect more severe cognitive impairments. He does appear with psychosis and delusions. Pending collateral information from [facility]. PLAN 1. admit to S1, sect 12b 2. increase risperidone 1mg po BID. continue sertraline 3. pending collateral information from OP psychiatrist. This contract writer spoke with but information is limited. Reason for continued inpatient stay Substantial Risk for: med/psych decompensation Time Spent With Patient Time: Total time managing care of this patient today ____ minutes.
[2024-01-15 20:00] VITALS: BP 94/51; PULSE 73; RESP 17; TEMP 36.8; O2SAT 97
[2024-01-15] MEDS: traZODone HCL 50 MG TABLET PO (21:00)
--- NOTE | 2024-01-16 08:24 | PM.PSYDC ---
DS: Providers Provider Date of Service: 01/16/24 Date of admission: 01/02/24 22:17 Date of discharge: 01/16/24 Primary care physician: Unknown Physician Consults: 01/02/24 22:42 Consult to Hospitalist Routine Comment: Consulting Provider: Hospitalist Reason For Exam: medical H&P 01/03/24 00:40 Consult to Wound Care Routine Reason for consultation: open areas on face, dry/scaly Has provider been notified: Yes DS: Diagnosis Discharge Diagnosis (1) MDD (major depressive disorder): Status: Acute (2) Major neurocognitive disorder: Status: Acute DS: Medications Discharge Medications Home Medications: Home Medications ?Medication ?Instructions ?Recorded ?Confirmed cyanocobalamin (vitamin B-12) 2,000 mcg PO DAILY 01/02/24 01/02/24 1,000 mcg tablet docusate sodium 50 mg capsule 100 mg PO BID 01/02/24 01/02/24 hydroxyzine HCl 10 mg tablet 10 mg PO TID PRN Anxiety 01/02/24 01/02/24 risperidone 0.5 mg tablet 0.5 mg PO BEDTIME 01/02/24 01/02/24 sennosides 8.6 mg-docusate sodium 1 tab-cap PO BID 01/02/24 01/02/24 50 mg capsule (Senna Plus) sertraline 50 mg tablet 25 mg PO DAILY 01/02/24 01/02/24 Mental Status Exam Mental Status Exam Patient Appearance: Appropriate Patient Orientation: Person Level of Consciousness: Awake and Appropriate Patient Behavior: Guarded and Passive Mood Description: Withdrawn Affect Description: Constricted Patient Cognition Impaired: Yes Ability to Follow Directions: Good Speech Pattern: Clear Hallucinations: None Delusions: Not Present Thought Process: Distracted and Slowed Thinking Thought Content: positive for Poverty of Content and positive for Thought Blocking Judgement: Poor DS: Summary Hospital Course Hospital Course: The patient is a 73-year-old male with a 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 He was transferring to this facility for exacerbation of depression and psychosis. Please see the HPI of the admission note for further details. On intake, the patient was severely impaired and we given all the care for his own ADL less. Later on we found out that patient was more functional than usual and he. Since the patient disclosed psychosis and depression we start the titration of his Risperdal and Zyprexa. Risperdal was increased from 0.5 p.o. q.h.s. to 1 mg p.o. t.i.d. with no evidence of side-effects. Also, his Zoloft was increased from 25 mg daily to 100 mg p.o. q.h.s.. The patient was able to tolerate the titration without side effects. Since the patient was at baseline and after gathering collateral information the patient was transferring to his home with several ancillary services. No active safety concerns at this moment. Time spent discussing smoking cessation with patient: 3 to 10 minutes Status at Discharge Cognitive/behavioral status at discharge: At baseline Functional status at discharge: independent ambulation Overall status at discharge: patient is back to baseline Time Spent with Patient Time attestation: Total time managing care of this patient today _30___ minutes. Time spent: Less than 30 minutes Discharge Plan Discharge Anticipated Discharge Date/Time: 01/16/24 08:30 Patient Disposition: Home, Self-Care Discharge Diagnosis: Traumatic brain injury. Major depressive disorder Psychosis NOS Referrals: Kira Limon [Other] - 01/20/24 10:00 am (You will see on 01/19 at 10:00. She will see you via telehealth. If you have any questions or concerns please feel free to call her at the number listed.) Discharge Medications: New acetaminophen 325 mg Tablet 650 mg PO Q6H PRN (Reason: Headache/Pain Mild Scale (1-3)) Qty: 30 0RF trazodone 50 mg Tablet 50 mg PO BEDTIME MRX1 PRN (Reason: Insomnia) 30 Days Qty: 30 0RF sertraline 100 mg Tablet 100 mg PO DAILY 30 Days Qty: 30 0RF risperidone 1 mg Tablet 1 mg PO TID 30 Days Qty: 90 0RF ammonium lactate 12 % Lotion 1 appl topical BID 30 Days Qty: 5 0RF Protocol: Apply to: Apply to: affected area Continued cyanocobalamin (vitamin B-12) 1,000 mcg Tablet 2,000 mcg PO DAILY Qty: 60 0RF docusate sodium 50 mg Capsule 100 mg PO BID Qty: 60 0RF Senna Plus 8.6-50 mg Capsule 1 tab-cap PO BID Qty: 60 0RF Discontinued hydroxyzine HCl 10 mg Tablet 10 mg PO TID PRN (Reason: Anxiety) sertraline 50 mg tablet 25 mg PO DAILY risperidone 0.5 mg tablet 0.5 mg PO BEDTIME Discharge Orders: Discharge Order (Routine); Ordered 01/16/24 Ordered By: Andres Rizvi Diet: Advance to usual diet Activity on Discharge: As tolerated Stand Alone Forms: Patient Portal Discharge page Print Language: Latvian Care Plan Goals: Care plan goals achieved in this admission Health Concerns: Continue treatment with primary care physician and other specialists as an outpatient. Plan of Treatment: Competing new psychiatric treatment as an outpatient Assessment: Elderly male with several neurological deficits after traumatic brain injury, admitted for exacerbation of depression and psychosis that resolved with the titration of Risperdal and Zoloft. At this moment he is at baseline ready to be discharged to the community.
[2024-01-16 08:29] VITALS: BP 97/53; PULSE 67; RESP 15; TEMP 36.6; O2SAT 97
[2024-01-16] MEDS: Cyanocobalamin (Vitamin B-12) 1,000 MCG TABLET 2000 MCG PO (08:30)
[2024-01-16] MEDS: Sennosides/Docusate Sodium TABLET 1 TAB PO (08:30)
[2024-01-16] MEDS: Docusate Sodium 100 MG/10 ML LIQUID PO (08:30)
[2024-01-16] MEDS: risperiDONE 1 MG TABLET PO (08:30)
== END 2024-01-16 09:28 | disposition home or self-care (01) | DRG 881 ==
PROVIDERS: Social Worker; Admitting Provider Psychiatry & Neurology Psychiatry; Visit Provider Psychiatry & Neurology Psychiatry
DX: F32.9 Major depressive disorder, single episode, unspecified (principal); R45.851 Suicidal ideations; G82.20 Paraplegia, unspecified; G93.1 Anoxic brain damage, not elsewhere classified; T58.9 Toxic effect of carbon monoxide from unspecified source; F29 Unspecified psychosis not due to a substance or known physiological condition; I48.0 Paroxysmal atrial fibrillation; F03.90 Unspecified dementia, unspecified severity, without behavioral disturbance, psychotic disturbance, mood disturbance, and anxiety; S06.9XAS Unspecified intracranial injury with loss of consciousness status unknown, sequela; Z87.891 Personal history of nicotine dependence; Z79.899 Other long term (current) drug therapy
CPT/HCPCS: 36415; 80053; 80061; 82607; 82746; 83036; 84443; 92526; 92610

== ENCOUNTER → 2024-01-02 22:17 | Outpatient (BNV) | payer OTHER, SELFPAY | PROVIDERS: Admitting Provider Psychiatry & Neurology Psychiatry; Visit Provider Student in an Organized Health Care Education/Training Program | DX: Z00.8 Encounter for other general examination (principal) | CPT/HCPCS: 99429 ==

== ENCOUNTER → 2024-01-02 22:17 | Outpatient (BNV) | payer OTHER, SELFPAY | PROVIDERS: Admitting Provider Psychiatry & Neurology Psychiatry; Visit Provider Psychiatry & Neurology Psychiatry | DX: F32.2 Major depressive disorder, single episode, severe without psychotic features (principal); F03.90 Unspecified dementia, unspecified severity, without behavioral disturbance, psychotic disturbance, mood disturbance, and anxiety | CPT/HCPCS: 90792; 99231; 99232; 99238 ==

== ENCOUNTER 2024-07-07 11:33 | Emergency (ER) | payer MEDICARE, SELFPAY ==
--- NOTE | 2024-07-07 11:35 | ED_ITS ---
HPI - Extremity Injury (Lower) General Chief Complaint: Wound/Laceration Stated Complaint: toe lac, +thinners Time Seen by Provider: 07/07/24 11:35 Source: patient, EMS, RN notes reviewed and old records reviewed Mode of arrival: EMS History of Present Illness ED Provider: Wendy Verma PA-C HPI Narrative: 74-year-old male with a past medical history of proximal AFib on Eliquis, paraplegia, anoxic brain injury, MDD, presenting to the ED via EMS from [facility] due to left 2nd toenail uncontrolled bleeding since yesterday. Per EMS toenail was accidentally removed during physical therapy yesterday and bleeding has been uncontrolled. Per EMS patient is at baseline mentation. Remaining history limited due to patient's baseline mental status Related Data Previous Rx's ?Medication ?Instructions ?Recorded acetaminophen 325 mg tablet 650 mg (2 x 325 mg) PO Q6H PRN 01/16/24 Headache/Pain Mild Scale (1-3) #30 tabs ammonium lactate 12 % lotion 1 appl topical BID 30 days #5 grams 01/16/24 cyanocobalamin (vitamin B-12) 2,000 mcg (2 x 1,000 mcg) PO DAILY 01/16/24 1,000 mcg tablet #60 tabs docusate sodium 50 mg capsule 100 mg (2 x 50 mg) PO BID #60 caps 01/16/24 risperidone 1 mg tablet 1 mg PO TID 30 days #90 tabs 01/16/24 sennosides 8.6 mg-docusate sodium 1 tab-cap PO BID #60 caps 01/16/24 50 mg capsule (Senna Plus) sertraline 100 mg tablet 100 mg PO DAILY 30 days #30 tabs 01/16/24 trazodone 50 mg tablet 50 mg PO BEDTIME MRX1 PRN Insomnia 01/16/24 30 days #30 tabs Allergies Allergy/AdvReac Type Severity Reaction Status Date / Time Penicillins Allergy Severe Anaphylaxis Verified 07/07/24 11:58 Review of Systems 2 Review of Systems: Yes all other systems are reviewed and are negative Constitutional: Constitutional: Reports as per HPI [facility] Past Medical History Attestation statement: The following information was validated with the patient. 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) Patient Tobacco Use Status: Former Tobacco user Tobacco use type: Cigarette Smoked in Last 30 Days: No Use of substances other than those prescribed or required for medical reasons: No Advance Directives: Yes Advance Directives on File: Yes Advance Directives Date on File: 01/19/24 service: No Sexual orientation: Straight/Heterosexual Physical Exam 2 Vital Signs: Vital Signs: Last Vital Signs Temp 97.4 F 07/07/24 11:48 Pulse 60 07/07/24 11:48 Resp 14 07/07/24 11:48 BP 128/62 07/07/24 11:48 Pulse Ox 98 07/07/24 11:48 O2 Del Method Room Air 07/07/24 11:48 BMI result Body Mass Index 23.1 Const: General: cooperative, healthy appearing and no acute distress O rientation/consciousness: patient oriented x3 Limitations: no limitations HEENT: Head: Yes normal to inspection and Yes atraumatic Ears: hearing grossly normal bilaterally General nose exam: Normal external nose present Face and sinus: Yes normal facial exam Eyes: General: appearance normal, both eyes and all related structures EOM: EOMs intact bilaterally Neck: Neck: Yes normal visual inspection and Yes no meningeal signs Resp: Effort & Inspection: normal respiratory effort and no respiratory distress Cardio: Rate: regular rate Skin: Rashes: no rashes Wounds: no wounds Neuro: General: patient oriented x3, tone normal and no meningeal signs C ranial nerves: Yes CN's II-XII intact bilaterally Gait exam (Neuro): Normal gait present Extrem: Other: Left 2nd toenail removed. Active bleeding present. No evidence of trauma. Neurovascularly intact. Course Course Course Narrative: -1240--on re-evaluation bleeding still controlled. -1437--H/H stable. Labs otherwise reassuring. Bleeding has remained controlled. > dressing applied. Patient is stable for discharge back to [facility] Medical Decision Making Medical Decision Making MDM Narrative: 74-year-old male with a past medical history of proximal AFib on Eliquis, paraplegia, anoxic brain injury, MDD, presenting to the ED via EMS from [facility] due to left 2nd toenail uncontrolled bleeding since yesterday. On exam vital signs stable, NAD, nontoxic appearing, at baseline mentation, left 2nd toenail removed with active bleeding present. Dressing soaked upon removal. Uncontrolled with cauterization. Surgicel and dressing applied. We will continue to monitor and re-evaluate. Rule out anemia Plan: CBC/INR, wound care Please refer to course for remaining clinical decision making, interpretation of labs/imaging results, and discussions with consultants and/or family members. Differential Diagnosis Differential Diagnoses: The differential diagnosis associated with the presentation includes As above Lab Data MDM Lab Attestation statement: I reviewed the patient's lab results. 07/07/24 13:35 Labs: Lab Results 07/07/24 Range/Units 13:35 WBC 6.1 (4.8-10.8) X10*3/uL RBC 3.65 L (4.60-5.80) X10*6/uL Hgb 11.5 L (14.0-18.0) g/dl Hct 34.5 L (42.0-52.0) % MCV 94.5 (80.0-98.0) fL MCH 31.5 (27.0-33.0) pg MCHC 33.3 (31.0-36.0) g/dl RDW 14.2 (11.0-16.0) % Plt Count 135 L (160-400) X10*3/uL MPV 10.4 (9.4-12.4) fL Immature Gran % (Auto) 0.3 (0.0-0.4) % Neut % (Auto) 67.3 (45-73) % Lymph % (Auto) 23.1 (20-40) % [place] % (Auto) 6.9 (2-11) % Eos % (Auto) 2.1 (0-4) % Baso % (Auto) 0.3 (0-2) % Lymph # (Auto) 1.4 (1.2-4.9) X10*3/uL [place] # (Auto) 0.4 (0.1-1.2) X10*3/uL Eos # (Auto) 0.1 (0.0-0.4) X10*3/uL Baso # (Auto) 0.0 (0.0-0.2) X10*3/uL Abs Immat Gran (auto) 0.02 (0.00-0.03) X10*3/uL Absolute Neuts (auto) 4.1 (2.0-8.3) x10*3/uL Absolute Nucleated RBC 0.000 (0.0-0.012) X10*3/uL Nucleated RBC % (auto) 0.0 (0.0-0.2) /100WBC PT 14.6 H (10.9-12.4) SEC INR 1.3 H (0.9-1.1) Independent Historian Clinical information obtained from an independent historian. History obtained from or confirmed by: EMS External Record Review External record reviewed: Inpatient record, Office record, Outpatient record, Prior outpatient labs, Prior outpatient radiology, Primary care record and Outside ED record Tests considered The following testing was considered but not selected: As above Prescription Management I considered prescription management with: Other Chronic Conditions Patient?s care impacted by: Other Social Determinants Patient?s care significantly limited by Social Determinants of Health including: Other Social Determinant of Health Discharge Plan Discharge Clinical Impression: Bleeding Patient Disposition: Xfer SNF Transfer Details: [facility] Additional Instructions: Your bleeding has been controlled If dressing is applied Please change dressing every 24 hours and watch for rebleeding If rebleeding occurs apply direct pressure Follow up with her doctor Your blood work is reassuring Prescriptions: No Action acetaminophen 325 mg Tablet 650 mg PO Q6H PRN (Reason: Headache/Pain Mild Scale (1-3)) Qty: 30 0RF trazodone 50 mg Tablet 50 mg PO BEDTIME MRX1 PRN (Reason: Insomnia) 30 Days Qty: 30 0RF sertraline 100 mg Tablet 100 mg PO DAILY 30 Days Qty: 30 0RF risperidone 1 mg Tablet 1 mg PO TID 30 Days Qty: 90 0RF ammonium lactate 12 % Lotion 1 appl topical BID 30 Days Qty: 5 0RF Protocol: Apply to: Apply to: affected area cyanocobalamin (vitamin B-12) 1,000 mcg Tablet 2,000 mcg PO DAILY Qty: 60 0RF docusate sodium 50 mg Capsule 100 mg PO BID Qty: 60 0RF Senna Plus 8.6-50 mg Capsule 1 tab-cap PO BID Qty: 60 0RF Referrals: Ryan Paz DO [Primary Care Provider] - Print Language: Occitan
[2024-07-07 11:48] VITALS: BP 110/80; BP 128/62; PULSE 60; PULSE 65; RESP 14; TEMP 36.3; O2SAT 95; O2SAT 98; BMI 23.1
--- OUTSIDE RECORDS SUMMARY | 2024-07-07 12:49 | XMS_ITS | Encounter Summary ---
Author Organization [facility] Address [address] [place] [address] Phone Care Team Providers Care Tourist Adviser Name Role Phone Alina Ames MD Primary Care Provider Encounter Details Date Type Department Care Team (Late st Contact Info) Description 02/05/2024 Procedure Pass [facility] [address] [place] [address] Social History Tobacco Use Types Packs/Day Years Used Date Smoking Tobacco: Former Cigarettes Q uit: 02/26/1985 Smokeless Tobacco: Former Alcohol Use Standard Drinks/Week Comments No 0 (1 standard drink = 0.6 oz pur e alcohol) Education Answer Date Recorded Are you interested in more education? Not on zeny e 06/20/2022 Are you concerned about learning? Not on file 06/20/2022 No 06/20/2022 No 06/20/2022 Food Answer Date Recorded Within the past 6 months we worried whether our food would run out before we got money to buy more. Unable to assess 024 Within the past 6 months the food we bought just didn't last and we didn't have enough money to get more. Unable to assess 01/20/2024 Residential Stability Answer Date Recor ded What is your housing situation today? I have cristina sing 01/20/2024 How many times have you moved in the past 12 mon ths? Unable to assess 01/20/2024 Paying for Meds Answer Date Recorded Do you have trouble paying for medicines? Unable to assess 01/20/2024 Paying Utility Bills Answer Date Record ed Do you have trouble paying y our heating or electricity bill? Unable to assess 01/20/2024 Transportation Answer Date Recorded Has the lack of transportati on kept you from medical appointments or from getting medications? Unable to assess 01/20/2024 Digital Access Answer Date Recorded No 01/20/2024 No 01/20/2024 Do you have reliable internet access at home? Un able to assess 01/20/2024 Do you have a device (e.g., phone, tablet, computer) with a working camera? Unable to assess 01/20/2024 Intimate Partner Violence Answer Date R ecorded Are you denied basic needs s uch as food, clothing, or medical care? Deferred 01/19/2024 In the past 12 months have y ou been in a relationship with a person who hurts, threatens, or tries to control you? Deferred 01/19/2024 Are you denied basic needs s uch as food, clothing, or medical care? Deferred 01/19/2024 In the past 12 months have y ou been in a relationship with a person who hurts, threatens, or tries to control you? Deferred 01/19/2024 Sex and Gender Information Value Date Recorded Sex Assigned at Not on file Legal Sex Male 7:10 PM EST Gender Identity Not on file Sexual Orientation Not on file documented as of this encounter Functional Status * Patient is deaf or has serious difficulty with hearing Answer Date of Assessment Author No 02/28/2016 9:32 PM Shital Dickson MD * Patient is blind or has serious difficulty with seeing, even when wearing glasses Answer Date of Assessment Author No 02/28/2016 9:32 PM Shital Dickson MD * Patient has serious difficulty walking or climbing stairs (5yr old or older) Answer Date of Assessment Author No 02/28/2016 9:32 PM Shital Dickson MD * Patient has serious difficulty dressing or bathing (5yr old or older) Answer Date of Assessment Author No 02/28/2016 9:32 PM Shital Dickson MD * Patient has serious difficulty doing errands alone such as visiting a doctor???s office or shopping, due to physical, mental, or emotional condition (15 years old or older) Answer Date of Assessment Author No 02/28/2016 9:32 PM Shital Dickson MD documented as of this encounter Mental Status * Patient has serious difficulty concentrating, remembering, or making decisions due to physical, mental, or emotional condition Answer Entry Date Author Yes 02/28/2016 9:32 PM Shital Dickson MD documented in this encounter Plan of Treatment Upcoming Encounters Date Type Department Care Team (Late st Contact Info) Description 07/14/2024 7:30 AM EDT Appointment [address] [address] Jose Khanna MD [address] [place] [id number] [email or web address] 08/04/2024 7:30 AM EDT Appointment [address] [address] Jose Khanna MD [address] [place] [phone] [email or web address] 08/25/2024 7:30 AM EDT Appointment [address] [address] Jose Khanna MD [address] [place] [id number] [email or web address] documented as of this encounter Visit Diagnoses Not on filedocumented in this encounter Additional Health Concerns Infection Onset Date Last Indicated Resolved Time CoV-Risk Comment:Per note documentation 02/11/2024 02/11/2024 2:06 PM AMMY Ruanopneumovirus 02/11/2024 02/11/2024 02/26/2024 1 2:43 PM EST documented as of this encounter Care Teams Tourist Adviser Relationship Specialty Start Date End Date Alina Ames MD [address] [place] [id number] [email or web address] PCP - General Family Medicine 01/19/24 documented as of this encounter Additional Source Comments The information contained in this document represents components of the legal health record. It is not the complete legal health record.[facility]
--- OUTSIDE RECORDS SUMMARY | 2024-07-07 12:49 | XMS_ITS | Clinical Summary ---
Author Organization [facility] Address [address] [place] [address] Care Team Providers Care Mineral Surveying Technician Name Role Phone Alina Ames MD Unavailable Alina Ames MD Primary Care Provider [phone] Allergies Active Allergy Reactions Criticality Noted Date Comments Levofloxacin Other (See Comments) 06/26/2015 tendonitis Penicillins Other (See Comments) 02/15/2016 Pt says he is allergic to penicillins but his could not confirm this. Medications cyanocobalamin (VITAMIN B-12) 1000 MCG tablet 2 tablet DAILY (route: oral) 11/18/2022 Active senna-docusate (SENNA PLUS) 8.6-50 mg tablet 1 tablet 2 TIMES DAILY (route: oral) 01/31/2023 Active risperiDONE (RisperDAL) 0.5 MG tablet Take 1 tablet (0.5 mg total) by mouth at bedtime. 01/02/2024 Active sertraline (ZOLOFT) 25 MG tablet Take 3 tablets (75 mg total) by mouth daily. 01/03/2024 Active hydrOXYzine HCL (ATARAX) 10 MG tablet Take 1 tablet (10 mg total) by mouth 3 times a day as needed for anxiety. 01/02/2024 Active docusate sodium (COLACE) 100 MG capsule Take 1 capsule (100 mg total) by mouth every morning & every evening. 01/02/2024 Active Active Problems Problem Noted Date Diagnosed Date Suicide ideation 01/02/2024 Deficiency of other specified B group vitamins 1 04/03/2022 Presbyopia 01/31/2023 History of nicotine dependence 01/31/2023 Myopia, bilateral 01/31/2023 Pressure ulcer 03/12/2016 Depression 07/03/2015 Atrial fibrillation 06/27/2015 Chronic foot ulcer 06/02/2015 Deep vein thrombosis 08/06/2013 Overview (01/01/2024): 07/2013 - partially occlusive thrombus within the distal portion of the left femoral vein Pernicious anemia 10/07/2007 Paraplegia 01/06/2001 Elevated cholesterol 03/30/1986 Social History Tobacco Use Types Packs/Day Years Used Date Smoking Tobacco: Former Cigarettes Tobacco Cessation:Counseling Given: Not Answered [facility] Utilities Answer Date Recorded In the past 12 months has th e electric, gas, oil, or water company threatened to shut off services in your home? Patient declined 01/01/2024 Humiliation, Afraid, Rape, and Kick questionnair e Answer Date Recorded Within the last year, have y ou been afraid of your partner or ex-partner? Patient declined 01/01/2024 Emotionally Abused Not on file 01/01/2024 Physically Abused Not on file 01/01/2024 Sexually Abused Not on file 01/01/2024 Overall Financial Resource Strain (CARDIA) Answe r Date Recorded How hard is it for you to pa y for the very basics like food, housing, medical care, and heating? Patient declined 01/01/2024 Hunger Vital Sign Answer Date Recorded Within the past 12 months, y ou worried that your food would run out before you got the money to buy more. Patient declined Ran Out of Food in the Last Year Not on file 01/01/2024 PRAPARE - Transportation Answer Date Re corded In the past 12 months, has l ack of transportation kept you from medical appointments or from getting medications? Patient declined 01/01/2024 In the past 12 months, has l ack of transportation kept you from meetings, work, or from getting things needed for daily living? Patient declined 01/01/2024 Housing Stability Vital Sign Answer Kobi e Recorded In the last 12 months, was t here a time when you were not able to pay the mortgage or rent on time? Patient declined 01/01/20 24 Number of Times Moved in the Last Year Not on fi le 01/01/2024 At any time in the past 12 m [facility], were you homeless or living in a long term (including now)? Patient declined 01/01/2024 Food Insecurity Answer Date Recorded Within the past 12 months, y ou worried that your food would run out before you got the money to buy more. Patient declined Ran Out of Food in the Last Year Not on file 01/01/2024 Intimate Partner Violence Answer Date R ecorded Emotionally Abused Not on file 01/01/2024 Within the last year, have y ou been afraid of your partner or ex-partner? Patient declined 01/01/2024 Physically Abused Not on file 01/01/2024 Sexually Abused Not on file 01/01/2024 Housing Stability Answer Date Recorded Unstable Housing in the Last Year Not on file 01/01/2024 In the last 12 months, was t here a time when you were not able to pay the mortgage or rent on time? Patient declined 01/01/20 [address] Lived in the Last Year Not on f ile 01/01/2024 Sex and Gender Information Value Date Recorded Sex Assigned at Male 12/30/2023 3:46 PM EST Legal Sex Male 6:00 AM EST Gender Identity Male 12/30/2023 3:46 PM EST Sexual Orientation Not on file Last Filed Vital Signs Vital Sign [place] Time Taken Comments Blood Pressure 133/82 01/02/2024 3:20 PM EST Pulse 84 01/02/2024 3:20 PM EST Temperature 36.4 ??C (97.5 ??F) 01/02/2024 3:20 PM ES T Respiratory Rate 19 01/02/2024 3:20 PM EST Oxygen Saturation 98% 01/02/2024 3:20 PM EST Inhaled Oxygen Concentration - - Weight 75.9 kg (167 lb 5.3 oz) 01/01/2024 4:50 P M EST Height 182.9 cm (6') 01/01/2024 4:50 PM EST Body Mass Index 22.69 01/01/2024 4:50 PM EST Plan of Treatment Health Maintenance Due Date Last Done Comments Depression Screening 1954 Hepatitis C Screening 1966 DTaP,Tdap,and Td Vaccines (1 - Tdap) 1967 Pneumococcal Vaccine (1 of 1 - PCV) 1998 Zoster Vaccine (1 of 2) 1998 COVID-19 Vaccine (2023-2 5 season) 2023 Influenza Vaccine (Season Ended) 2024 Blood Pressure 01/01/2025 01/02/2024 Meningococcal Vaccines Aged Out No lo nger eligible based on patient's age to complete this topic Insurance M[employer] OPTIONS M[employer] OPTIONS Advance Directives Documents on File Type Date Recorded Patient Buyer Internship Expl anation Health Care Proxy 01/02/2024 2:53 PM * Full Code (Latest Code Status on File) Date Activated Date Inactivated Comments 12/29/2023 11:07 PM Question Answer Comments Discussed with/per: Unable to Confirm Reason: Patient incapacitate d and unable to reach surrogate decision maker(s) Care Teams Mineral Surveying Technician Relationship Specialty Start Date End Date Alina Ames MD [facility] [place] [address] PCP - Insurance Assigned PCP 12/29/23 Alina Ames MD [address] [place] [address] PCP - General Family Practice 12/30/23
--- OUTSIDE RECORDS SUMMARY | 2024-07-07 12:49 | XMS_ITS | Encounter Summary ---
Author Organization [facility] Address [address] [facility] [address] [place] [address] Phone Care Team Providers Care Topology Professor Name Role Phone Unknown, Unknown Primary Care Provider Alina Koehler MD Primary Care Provider Encounter Details Date Type Department Care Team (Late st Contact Info) Description 02/26/2016 Procedure Pass [facility], [address] [place] [address] Social History Tobacco Use Types Packs/Day Years Used Date Smoking Tobacco: Former Cigarettes Q uit: 02/26/1985 Smokeless Tobacco: Former Alcohol Use Standard Drinks/Week Comments No 0 (1 standard drink = 0.6 oz pur e alcohol) Sex and Gender Information Value Date Recorded Sex Assigned at Not on file Legal Sex Male 7:10 PM EST Gender Identity Not on file Sexual Orientation Not on file documented as of this encounter Functional Status * Patient is deaf or has serious difficulty with hearing Answer Date of Assessment Author No 07/03/2015 1:22 PM Whitney Diaz CNP * Patient is blind or has serious difficulty with seeing, even when wearing glasses Answer Date of Assessment Author No 07/03/2015 1:22 PM Whitney Diaz CNP * Patient has serious difficulty walking or climbing stairs (5yr old or older) Answer Date of Assessment Author Yes 07/03/2015 1:22 PM EDT Whitney Rosas CNP * Patient has serious difficulty dressing or bathing (5yr old or older) Answer Date of Assessment Author Yes 07/03/2015 1:22 PM EDT Whitney Rosas CNP * Patient has serious difficulty doing errands alone such as visiting a doctor???s office or shopping, due to physical, mental, or emotional condition (15 years old or older) Answer Date of Assessment Author Yes 07/03/2015 1:22 PM EDT Whitney Rosas CNP documented as of this encounter Mental Status * Patient has serious difficulty concentrating, remembering, or making decisions due to physical, mental, or emotional condition Answer Entry Date Author Yes 07/03/2015 1:22 PM REGINET Whitney Rosas CNP documented in this encounter Plan of Treatment Upcoming Encounters Date Type Department Care Team (Late st Contact Info) Description 07/14/2024 7:30 AM EDT Appointment [address] [address] Jose Khanna MD [address] [place] [phone] [email or web address] 08/04/2024 7:30 AM EDT Appointment [address] [address] Jose Khanna MD [address] [place] [phone] [email or web address] 08/25/2024 7:30 AM EDT Appointment [address] [address] Jose Khanna MD [address] [place] [phone] [email or web address] documented as of this encounter Visit Diagnoses Not on filedocumented in this encounter Additional Health Concerns Infection Onset Date Last Indicated Resolved Time CoV-Risk Comment:Per note documentation 02/11/2024 02/11/2024 4 2:06 PM EST Metapneumovirus 02/11/2024 02/11/2024 02/26/2024 1 2:43 PM EST documented as of this encounter Care Teams Topology Professor Relationship Specialty Start Date End Date Unknown, Unknown, MD PCP - General 06/27/15 01/18/24 Alina Ames MD [address] [place] [address] [email or web address] PCP - General Family Medicine 01/19/24 documented as of this encounter Additional Source Comments The information contained in this document represents components of the legal health record. It is not the complete legal health record.[facility]
--- OUTSIDE RECORDS SUMMARY | 2024-07-07 12:49 | XMS_ITS | Encounter Summary ---
Author Organization [facility] Address [address] [place] [address] Phone Care Team Providers Care Cruise Agent Name Role Phone Alina Ames MD Primary Care Provider Encounter Details Date Type Department Care Team (Late st Contact Info) Description 02/24/2024 Procedure Pass [facility] Radiology [address] [place] [address] Social History Tobacco Use Types Packs/Day Years [...] money to get more. Unable to assess 02/24/2024 Residential Stability Answer Date Recor ded What is your housing situation today? I choose n ot to answer 02/24/2024 How many times have you move d in the past 12 months? Unable to assess 02/24/2024 Paying for Meds Answer Date Recorded Do you have trouble paying for medicines? Unable to assess 02/24/2024 Paying Utility Bills Answer Date Record ed Do you have trouble paying y our heating or electricity bill? Unable to assess 02/24/2024 Transportation Answer Date Recorded Has the lack of transportati on kept you from medical appointments or from getting medications? Unable to assess 02/24/2024 Digital Access Answer Date Recorded No 02/24/2024 No 02/24/2024 Do you have reliable internet access at home? Un able to assess 02/24/2024 Do you have a device (e.g., phone, tablet, computer) with a working camera? Unable to assess 02/24/2024 Intimate Partner Violence Answer Date R ecorded Are you denied basic needs s uch as food, clothing, or medical care? Patient unable to respond 02/16/2024 In the past 12 months have y ou been in a relationship with a person who hurts, threatens, or tries to control you? Patient unable to respond 02/16/2024 Are you denied basic needs s uch as food, clothing, or medical care? Patient unable to respond 02/16/2024 In the past 12 months have y ou been in a relationship with a person who hurts, threatens, or tries to control you? Patient unable to respond 02/16/2024 Sex and Gender Information Value Date Recorded [...] Info) Description 07/14/2024 7:30 AM EDT Appointment [address] [address] Jose Khanna MD [address] [place] [phone] [email or web address] 08/04/2024 7:30 AM EDT Appointment [address] [address] Jose Khanna MD [address] [place] [phone] [email or web address] 08/25/2024 7:30 AM EDT Appointment [address] [address] Jose Khanna MD [address] [place] [address] [email or web address] documented as of this encounter Visit Diagnoses Not on filedocumented in this encounter Additional Health Concerns Infection Onset Date Last Indicated Resolved Time Metapneumovirus 02/11/2024 02/11/2024 02/26/2024 1 2:43 PM EST documented as of this encounter Care Teams Cruise Agent Relationship Specialty Start Date End Date Alina Ames MD [address] [place] [phone] [email or web address] P[place] - General Family Medicine 01/19/24 documented as of this encounter Additional Source Comments The information contained in this document represents components of the legal health record. It is not the complete legal health record.[facility]
--- OUTSIDE RECORDS SUMMARY | 2024-07-07 12:49 | XMS_ITS | Encounter Summary ---
Author Organization [facility] Address [address] [place] [address] Phone Care Team Providers Care Clay Stain Mixer Name Role Phone Alina Ames MD Primary Care Provider Encounter Details Date Type Department Care Team (Late st Contact Info) Description 01/19/2024 Procedure Pass [facility], [place] [address] [facility], [address]th [place] [address] Social History Tobacco Use Types Packs/Day Years [...] your housing situation today? I have cristina rojas 01/20/2024 How many times have you moved [...] 02/28/2016 9:32 PM Shital Dickson MD * Calculated C-SSRS Risk Score (Lifetime/Recent) Answer Date of Assessment Author High Risk 01/20/2024 4:00 AM Vicki Melvin RN * [place] Suicide Severity Rating Scale (Screener/Recent Self-Report) Question Answer Date of Assessment Author 1. Wish to be (Past 1 Month) Yes 01/20/2024 4:00 AM Vicki Mckeon RN 2. Non-Specific Active Suicidal Thoughts (Past 1 Month) Yes 01/20/2024 4:00 AM Vicki Mckeon RN 4. Active Suicidal Ideation with Some Intent to Act, Without Specific Plan (Past 1 Month) Yes 01/20/2024 4:00 AM Vicki Mckeon RN 5. Active Suicidal Ideation with Specific Plan and Intent (Past 1 Month) Yes 01/20/2024 4:00 AM Vicki Mckeon RN 6. Suicidal Behavior (Lifetime) Yes 01/20/2024 4:00 AM Vicki Mckeon RN 6. Suicidal Behavior (3 Months) Yes 01/20/2024 4:00 AM Vicki Mckeon RN documented as of this encounter Mental Status * Patient has serious difficulty concentrating, remembering, or making decisions due to physical, mental, or emotional condition Answer Entry Date Author Yes 02/28/2016 9:32 PM Shital Dickson MD documented in this encounter Plan of Treatment Upcoming Encounters Date Type Department Care Team (Late st Contact Info) Description 07/14/2024 7:30 AM EDT Appointment [facility] PACU1 [address] [place] [address] [facility] [address] [place] [address] [email or web address] 08/04/2024 7:30 AM EDT Appointment [facility] VÍCTOR [address] [place] [address] Jose Khanna MD [address] [place] [phone] [email or web address] 08/25/2024 7:30 AM EDT Appointment [facility] PACU1 [address] [place] [address] Jose Khanna MD [address] [place] [phone] [email or web address] documented as of this encounter Visit Diagnoses Not on filedocumented in this encounter Additional Health Concerns Infection Onset Date Last Indicated Resolved Time CoV-Risk Comment:Per note documentation 02/11/2024 02/11/2024 2:06 PM EST Metapneumovirus 02/11/2024 02/11/2024 02/26/2024 1 2:43 PM EST documented as of this encounter Care Teams Clay Stain Mixer Relationship Specialty Start Date End Date Alina Ames MD [address] [place] [phone] [email or web address] PCP - General Family Medicine 01/19/24 documented as of this encounter Additional Source Comments The information contained in this document represents components of the legal health record. It is not the complete legal health record.[facility]
--- OUTSIDE RECORDS SUMMARY | 2024-07-07 12:49 | XMS_ITS | Encounter Summary ---
Author Organization [facility] Address [address] [place] [address] Phone Care Team Providers Care University Manager Name Role Phone Alina Ames MD Primary Care Provider Encounter Details Date Type Department Care Team (Late st Contact Info) Description 02/26/2024 Procedure Pass [facility] Radiology [address] [place] [address] Social History Tobacco Use Types Packs/Day Years [...] Info) Description 07/14/2024 7:30 AM EDT Appointment [address] [address] Jose Khanna MD [address] [place] [phone] [email or web address] 08/04/2024 7:30 AM EDT Appointment [address] [address] Jose Khanna MD [address] [place] [address] [email or web address] 08/25/2024 7:30 AM EDT Appointment [address] [address] Jose Khanna MD [address] [place] [phone] [email or web address] documented as of this encounter Visit Diagnoses Not on filedocumented in this encounter Additional Health Concerns Infection Onset Date Last Indicated Resolved Time Metapneumovirus 02/11/2024 02/11/2024 02/26/2024 1 2:43 PM EST documented as of this encounter Care Teams University Manager Relationship Specialty Start Date End Date Alina Ames MD [address] [place] [phone] [email or web address] PCP - General Family Medicine 01/19/24 documented as of this encounter Additional Source Comments The information contained in this document represents components of the legal health record. It is not the complete legal health record.[facility]
--- OUTSIDE RECORDS SUMMARY | 2024-07-07 12:49 | XMS_ITS | Clinical Summary ---
Author Organization [facility] Address [address] [address] Care Team Providers Care Geometry Professor Name Role Phone Kalin Chambers MD Primary Care Provider Allergies No known active allergies Social History Tobacco Use Types Packs/Day Years Used Date Smoking Tobacco: Never Assessed Sex and Gender Information Value Date Recorded Sex Assigned at Not on file Legal Sex Male 6:14 AM EST Gender Identity Not on file Sexual Orientation Not on file Last Filed Vital Signs Vital Sign [place] Time Taken Comments Blood Pressure 100/65 10/18/2022 4:47 PM EDT Pulse 77 10/18/2022 4:47 PM EDT Temperature 37 ??C (98.6 ??F) 10/18/2022 4:47 PM EDT Respiratory Rate 16 10/18/2022 4:47 PM EDT Oxygen Saturation 95% 10/18/2022 4:47 PM EDT Inhaled Oxygen Concentration - - Weight 65.8 kg (145 lb) 10/30/2016 2:00 PM EDT Height - - Body Mass Index - - Plan of Treatment Health Maintenance Due Date Last Done Comments Lipid Panel 1950 Hepatitis C Screening 1966 DTaP/Tdap/Td Vaccines (1 - Tdap) 1967 Pneumococcal Vaccine: 50+ Ye ars (1 of 1 - PCV) 1998 Zoster Vaccines (1 of 2) 1998 Medicare Annual Wellness (AWV) 02/24/2023 COVID-19 Vaccine ( - 2023-2 5 season) 2023 Depression Screening 02/25/2024 Influenza Vaccine (Season Ended) 2024 HIB Vaccines Aged Out No longer eligi ble based on patient's age to complete this topic HPV Vaccines Aged Out No longer eligi ble based on patient's age to complete this topic Hepatitis A Vaccines Aged Out No long er eligible based on patient's age to complete this topic Hepatitis B Vaccines Aged Out No long er eligible based on patient's age to complete this topic IPV Vaccines Aged Out No longer eligi ble based on patient's age to complete this topic Meningococcal B Vaccine Aged Out No l onger eligible based on patient's age to complete this topic Meningococcal Vaccine Aged Out No maxim raquel eligible based on patient's age to complete this topic Rotavirus Vaccines Aged Out No longer eligible based on patient's age to complete this topic Insurance [place] [address] DUAL REPLACEMENT Care Teams Geometry Professor Relationship Specialty Start Date End Date Kalin Chambers MD [address] [place] [address] PCP - General 03/30/21
--- OUTSIDE RECORDS SUMMARY | 2024-07-07 12:49 | XMS_ITS | Encounter Summary ---
Author Organization [facility] Address [address] [facility] [address] [place] [phone] Phone Care Team Providers Care Aircraft Life Support Fitter Name Role Phone Unknown, Unknown Primary Care Provider Alina Koehler MD Primary Care Provider [phone] Reason for Referral * Physical Therapy (Elective) - Closed Specialty Diagnoses / Procedures Referred By Polo mitchell Referred To Contact Physical Therapy Diagnoses Paraplegia Alina Ames MD Phone: tel: fax: [email or web address] [address] [place] [address] Phone: tel: fax: Referral ID Status Reason Start Date Expiration Date Visits Re quested Visits Authorized [id number] Closed 11/29/2019 11/28/2020 1 1 Encounter Details Date Type Department Care Team (Latest Contact Info) Description 11/29/2019 Transcribe Orders [facility] [address] [place] [address] Alina Ames MD [address] [place] [phone] [email or web address] Paraplegia (Primary Dx) Social History Tobacco Use Types Packs/Day Years [...] Info) Description 07/14/2024 7:30 AM EDT Appointment [facility] PACU1 [address] [place] [address] Jose Khanna MD [address] [place] [phone] [email or web address] 08/04/2024 7:30 AM EDT Appointment [facility] PACU1 [address] [place] [address] Jose Khanna MD [address] [place] [phone] [email or web address] 08/25/2024 7:30 AM EDT Appointment [facility] PACU1 [address] [place] [address] Jose Khanna MD [address] [place] [phone] [email or web address] Scheduled Referrals Name Type Priority Associated Diagnoses Order Schedule Ambulatory referral to N Physical Therapy Outpatient Referral Routine Paraplegia Ordered: 11/29/2019 documented as of this encounter Visit Diagnoses Diagnosis Paraplegia- Primary documented in this encounter Additional Health Concerns Infection Onset Date Last Indicated Resolved Time CoV-Risk Comment:Per note documentation 02/11/2024 02/11/2024 2:06 PM EST Metapneumovirus 02/11/2024 02/11/2024 02/26/2024 1 2:43 PM EST documented as of this encounter Care Teams Aircraft Life Support Fitter Relationship Specialty Start Date End Date Unknown, Unknown, MD PCP - General 06/27/15 01/18/24 Alina Ames MD [address] [place] [phone] [email or web address] PCP - General Family Medicine 01/19/24 documented as of this encounter Additional Source Comments The information contained in this document represents components of the legal health record. It is not the complete legal health record.[facility]
--- OUTSIDE RECORDS SUMMARY | 2024-07-07 12:49 | XMS_ITS | Encounter Summary ---
Author Organization [facility] Address [address] [place] [address] Phone Care Team Providers Care Gas Leak Inspector Name Role Phone Alina Ames MD Primary Care Provider Encounter Details Date Type Department Care Team (Late st Contact Info) Description 02/24/2024 Procedure Pass [facility] Radiology [address] [place] [address] Social History Tobacco Use Types Packs/Day Years [...] Info) Description 07/14/2024 7:30 AM EDT Appointment [address] [address] Jose Khanna MD [address] [place] [phone] [email or web address] 08/04/2024 7:30 AM EDT Appointment [address] [address] Jose Khanna MD [address] [place] [phone] [email or web address] 08/25/2024 7:30 AM EDT Appointment [address] [address] Jose Khanna MD [address] [place] [phone] [email or web address] documented as of this encounter Visit Diagnoses Not on filedocumented in this encounter Additional Health Concerns Infection Onset Date Last Indicated Resolved Time Metapneumovirus 02/11/2024 02/11/2024 02/26/2024 1 2:43 PM EST documented as of this encounter Care Teams Gas Leak Inspector Relationship Specialty Start Date End Date Alina Ames MD [address] [place] [phone] [email or web address] PCP - General Family Medicine 01/19/24 documented as of this encounter Additional Source Comments The information contained in this document represents components of the legal health record. It is not the complete legal health record.[facility]
--- OUTSIDE RECORDS SUMMARY | 2024-07-07 12:49 | XMS_ITS | Clinical Summary ---
Author Organization [facility] Address [address] [place] [address] Phone Care Team Providers Care Image Editor Name Role Phone Alina Ames MD Primary Care Provider Allergies Active Allergy Reactions Criticality Noted Date Comments Levofloxacin Other (See Comments) 06/26/2015 tendonitis Penicillins Unknown 02/15/2016 Pt says he is allergic to penicillins but his could not confirm this. Medications * This document contains information received from the source organization and may not represent a complete record from that organization. acetaminophen (TYLENOL) 325 mg tablet Take 2 tablets (650 mg total) by mouth every 8 (eight) hours. 06/23/19 025 Active apixaban (ELIQUIS) 5 mg tablet Take 1 tablet (5 mg total) by mouth every 12 (twelve) hours. 06/23/19 025 Active lamoTRIgine (LAMICTAL) 25 MG IMMEDIATE release tablet Take 2 tablets (50 mg total) by mouth daily. 06/23/19 25 025 Active polyethylene glycol (MIRALAX) 17 gram packet Take 17 g by mouth 2 (two) times a day. 06/23/19 025 Active sertraline (ZOLOFT) 100 MG tablet Take 3 tablets (300 mg total) by mouth daily. 06/23/19 Active docusate sodium (COLACE) 100 MG capsule Take 1 capsule (100 mg total) by mouth 2 (two) times a day. 06/23/19 Active melatonin 5 mg Tab Take 1 tablet (5 mg total) by mouth nightly at bedtime. 06/23/19 Active memantine (NAMENDA) 10 MG tablet Take 1 tablet (10 mg total) by mouth 2 (two) times a day. 06/23/19 Active mirtazapine (REMERON) 15 MG tablet Take 1 tablet (15 mg total) by mouth nightly at bedtime. 06/23/19 Active QUEtiapine (SEROQUEL) 300 MG tablet Take 1 tablet (300 mg total) by mouth nightly at bedtime. 06/23/19 Active risperiDONE (RISPERDAL) 0.5 MG tablet Take 1 tablet (0.5 mg total) by mouth daily. 02/17/20 Discontinued(St op Taking at Discharge) risperiDONE (RISPERDAL) 1 MG tablet Take 1 tablet (1 mg total) by mouth nightly at bedtime. 02/16/20 Discontinued(St op Taking at Discharge) senna (SENOKOT) 8.6 mg tablet Take 1 tablet by mouth nightly at bedtime. 02/16/20 025 Discontinued(St op Taking at Discharge) sertraline (ZOLOFT) 100 MG tablet Take 2 tablets (200 mg total) by mouth daily. 02/17/20 025 Discontinued(St op Taking at Discharge) acetaminophen (TYLENOL) 325 mg tablet Take 2 tablets (650 mg total) by mouth every 6 (six) hours as needed. 02/16/20 025 Discontinued(St op Taking at Discharge) apixaban (ELIQUIS) 5 mg tablet Take 1 tablet (5 mg total) by mouth every 12 (twelve) hours. 02/16/20 025 Discontinued(St op Taking at Discharge) dextran 70-hypromellos e-glycern (ARTIFICIAL TEARS) 0.1-0.3-0.2 % Place 1-2 drops into each eye as needed for other (free text field) (dryness). 02/16/20 Discontinued(St op Taking at Discharge) lamoTRIgine (LAMICTAL) 25 MG IMMEDIATE release tablet Take 1 tablet (25 mg total) by mouth daily. 02/17/20 Discontinued(St op Taking at Discharge) multivitamin with calcium-minera ls-folic acid-vit k-lycopene (MEN'S ONE-A-DAY) 240 mcg-30 mcg- 300 mcg Tab tablet Take 1 tablet by mouth daily. 02/16/20 Discontinued(St op Taking at Discharge) polyethylene glycol (MIRALAX) 17 gram packet Take 17 g by mouth 2 (two) times a day. 02/16/20 Discontinued(St op Taking at Discharge) traZODone (DESYREL) 50 MG tablet Take 0.5 tablets (25 mg total) by mouth daily. 02/17/20 025 Discontinued(St op Taking at Discharge) traZODone (DESYREL) 50 MG tablet Take 0.5 tablets (25 mg total) by mouth nightly at bedtime as needed. 02/16/20 025 Discontinued(St op Taking at Discharge) traZODone (DESYREL) 50 MG tablet Take 0.5 tablets (25 mg total) by mouth every 6 (six) hours as needed. 02/16/20 025 Discontinued(St op Taking at Discharge) white petrolatum-min eral oiL (EUCERIN) Crea Apply topically as needed (dry skin). 02/16/20 025 Discontinued(St op Taking at Discharge) hydrocortisone 1 % cream Apply topically 2 (two) times a day as needed. 02/16/20 025 Discontinued(St op Taking at Discharge) acetaminophen (TYLENOL) 325 mg tablet Take 2 tablets (650 mg total) by mouth every 8 (eight) hours. 180 tablet 04/29/20 25 04/29/2 025 Discontinued apixaban (ELIQUIS) 5 mg tablet Take 1 tablet (5 mg total) by mouth every 12 (twelve) hours. 60 tablet 06/23/19 025 Discontinued lamoTRIgine (LAMICTAL) 25 MG IMMEDIATE release tablet Take 2 tablets (50 mg total) by mouth daily. 60 tablet 06/23/19 025 Discontinued polyethylene glycol (MIRALAX) 17 gram packet Take 17 g by mouth 2 (two) times a day. 60 packet 06/23/19 025 Discontinued sertraline (ZOLOFT) 100 MG tablet Take 3 tablets (300 mg total) by mouth daily. 90 tablet 9 06/23/19 025 Discontinued docusate sodium (COLACE) 100 MG capsule Take 1 capsule (100 mg total) by mouth 2 (two) times a day. 60 capsule 06/23/19 025 Discontinued melatonin 5 mg Tab Take 1 tablet (5 mg total) by mouth nightly at bedtime. 30 tablet 06/23/19 025 Discontinued memantine (NAMENDA) 10 MG tablet Take 1 tablet (10 mg total) by mouth 2 (two) times a day. 60 tablet 06/23/19 025 Discontinued mirtazapine (REMERON) 15 MG tablet Take 1 tablet (15 mg total) by mouth nightly at bedtime. 30 tablet 06/23/19 025 Discontinued QUEtiapine (SEROQUEL) 300 MG tablet Take 1 tablet (300 mg total) by mouth nightly at bedtime. 30 tablet 06/23/19 025 Discontinued Active Problems Problem Noted Date Diagnosed Date Severe episode of recurrent major depressive disorder, with psychotic features 03/02/2024 Encounter for preoperative assessment 02/24/2024 Assessment & Plan (02/24/2024 3:54 PM EST): Medical evaluation prior to ECT The patient is being considered for ECT for treatment of major depression with associated suicidal ideation which has been deemed refractory to antidepressant medications. The patient was evaluated in-person and in the medical records available regarding conditions known to be associated with increased risk of complications during ECT, according to the [place] [employer]: Unstable or severe cardiovascular disease (if severe aortic stenosis, consult cardiology - symptomatic): the patient has a recent TTE demonstrating dilated RA and mild tricuspid regurgitation, without other significant valvular or structural abnormalities. The patient has atrial fibrillation, previously deemed paroxysmal, now felt to be persistent. He was started on apixaban on 02/09/24 (at the time of writing, 15 days prior); no rate control has been needed thus far. According to resources, not much data exists but ECT is generally felt safe in A-fib, although patients may convert between sinus and a-fib during ECT. However, risk of dislodging a thrombus, if present, is unknown. He has been on apixaban for approximately 2 weeks. Therefore, could either wait until 4 week angie to undergo ECT or could obtain imaging to r/o thrombus as below. There is no history of or events concerning for CAD. --> per chart review and patient interview, no apparent unstable or severe cardiovascular disease. However, he does have atrial fibrillation which has become persistent, is newly on anticoagulation, and the presence of an atrial appendage thrombus is unknown. [ ] Recommend obtaining routine EKG prior to ECT. [ ] Recommend continuing apixaban [ ] Recommend obtaining CT Pulmonary Vein with contrast to rule out left atrial appendage thrombus. If negative for thrombus, may proceed with ECT from an atrial fibrillation perspective. If thrombus present, please consult Cardiology. [ ] If patient experiences atrial fibrillation with RVR following ECT, please consult Cardiology for recommendations. Could consider trial of PO metoprolol or diltiazem (consult pharmacy for patient-specific dosing) while awaiting Cardiology or Rapid Response assistance. If rates >120 and/or patient hypotensive or otherwise symptomatic, please call Rapid Response and follow up with Cardiology consultation. Space-occupying intracranial lesion with evidence of elevated intracranial pressure: the patient had a CT head on arrival to [facility] which demonstrated the following (no evidence of space-occupying lesions or elevated intracranial pressure): 1. No acute intracranial findings. 2. Stable focal hypodensities in the bilateral globi pallidi, which may represent sequela of prior reported carbon monoxide exposure. 3. Redemonstrated focal encephalomalacia in the bilateral anterior temporal lobes and right superior frontal gyrus, which may represent sequela of prior insults. 4. Parenchymal volume loss with more pronounced involvement of the left greater than right temporal lobes, interval slightly progressed since 2017. --> per chart review and patient interview, no apparent intracranial pressure or space-occupying lesion concerns. Recent cerebral hemorrhage or stroke: -> per chart review and patient interview, no recent intracranial hemorrhage or infarct. Bleeding or otherwise unstable vascular aneurysm: Patient's H&H are slightly decreased from admission values (~12, 40)--> (~10, 32), although stable for the past 2 weeks at the time of evaluation He was started on anticoagulation this admission. He has not had any apparent bleeding episodes. No previously documented vascular aneurysm. [ ] Continue to routinely monitor patient's H/H and stool/blood/physical exam for signs of bleeding Severe pulmonary condition: --> the patient does not have any history or evidence of severe pulmonary disease. [place] [employer] (ASA) Class 4 or 5: the patient is ASA class II-III. Additional concerns: Supplements: The patient denies use of Ginkgo biloba, ginseng, Sonia's wort, valerian and kava kava which can have STORE SAL[employer] effects which might interfere with ECT. Pulmonary status: Optimizing pulmonary status before ECT is important given the risk of inducing bronchoconstriction. Patients at risk of desaturation should receive supplemental oxygen via nasal cannula or facemask, initiated a few minutes prior to each treatment. 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 EEG without evidence of Notes that with encephalomalacia in cortical regions increased risk of seizure may exist though the patient has not had a seizure documented. Additionally notes cognitive impairment hx places patient at increased risk for short-term cognitive side-effects of ECT. [ ] Recommend Neurology consult for full evaluation of patient's risk of seizure (in addition to the desired induced seizure of ECT); may suggest brain MRI or other further imaging Thank you for this consult. Our recommendations are as follows: - Regarding baseline function: - Please check creatinine before obtaining CT pulm vein as recommended below - Optimization of electrolytes is recommended prior to procedure. Please obtain baseline labs with BMP and Magnesium levels, replete to potassium 4-5, and magnesium 2-3. - Regarding seizure risk in the setting of encephalomalacia: - Obtain Neurology consult for full evaluation of patient's risk of seizure (in addition to the desired induced seizure of ECT) - Regarding risks related to atrial fibrillation: - Recommend obtaining CT Pulmonary Vein with contrast to rule out left atrial appendage thrombus. If negative for thrombus, may proceed with ECT from an atrial fibrillation perspective. If thrombus present, please consult Cardiology. - Pre-procedure EKG is recommended to ensure no new arrhythmia. Please obtain now and page medical registrar or RC. - Monitoring with telemetry during and post procedure is recommended. - Recommend continuing apixaban - If patient experiences atrial fibrillation with RVR following ECT, please consult Cardiology for recommendations. Could consider trial of PO metoprolol or diltiazem (consult pharmacy for patient-specific dosing) while awaiting Cardiology or Rapid Response assistance. If rates >120 and/or patient hypotensive or otherwise symptomatic, please call Rapid Response and follow up with Cardiology consultation. - Other considerations: - Consider supplemental oxygen given recent viral URI - As you know, patient should be NPO (including tube feeding) for 6-8 hours prior to ECT; recommend NPO at midnight prior to procedure out of caution. Failure to thrive in adult 01/20/2024 Suicidal ideation 01/19/2024 Pressure ulcer 03/12/2016 Depression 07/03/2015 Assessment & Plan (02/24/2024 3:54 PM EST): Managed per primary team. Atrial fibrillation 06/27/2015 Assessment & Plan (06/27/2015 3:17 PM EDT): New diagnosis - follow HR - check with PCP re: other risk factors, but not high risk for CVA so no anticoagulation indicated Chronic foot ulcer 06/02/2015 Deep vein thrombosis 08/06/2013 Overview (03/18/2016): Overview: 07/2013 - partially occlusive thrombus within the distal portion of the left femoral vein Problems influencing health status 05/25/2013 Adenoma of large intestine 06/12/2010 Overview (03/18/2016): Overview: Single very small adenoma in right colon 05/2010. Repeat colonoscopy due 05/2015. Pernicious anemia 10/07/2007 Paraplegia 01/06/2001 Elevated cholesterol 03/30/1986 Resolved Problems Problem Noted Date Diagnosed Date Resolved Date Suicide attempt by drug ingestion 03/06/2016 03/18/2016 Altered mental status 02/26/20162016 Unspecified mood (affective) disorder 02/16/2016 03/18/2016 Suicidal overdose 07/03/2015 07/05/2015 Suicide attempt by drug ingestion 06/27/2015 07/05/2015 Assessment & Plan (07/03/2015 3:28 PM EDT): Warfarin, cellcept, perphenazine, unknown amounts - INR Peak 4.9, continues to be stable 1.5 today - medically clear for placement Discharge planning issues 06/27/2015 Assessment & Plan (07/03/2015 3:27 PM EDT): To [facility] for psychiatric admission Ingestion of unknown drug 06/26/2015 Overview (04/15/2018): 2019R1.3 IMO Load Assessment & Plan (07/02/2015 1:49 PM EDT): Warfarin, cellcept, perphenazine, unknown amounts - continue telemetry - INR Peak 4.9, continues to trend down 1.5 today - medically clear for placement Encounters * This document contains information received from the source organization and may not represent a complete record from that organization. Date Type Department Care Team Description 06/21/2024 8:39 AM EDT Anesthesia Event [address] [address] Kiara Traore MD, PhD 06/21/2024 7:00 AM EDT - 06/21/2024 11:59 PM EDT Hospital Encounter [address] [address] [facility], MD Eugenie Quintero Galina A, MD, PhD Discharge Disposition: Home or Self Care 06/09/2024 8:48 AM EDT Anesthesia Event [facility] [address] [address] Kiara Traore MD, PhD Robyn Wei MD 05/24/2024 8:33 AM EDT Anesthesia Event [address] [address] Sergio Ovalle MD 05/17/2024 8:54 AM EDT Anesthesia Event [address] [address] Reinaldo Vargas MD 05/10/2024 9:04 AM EDT Anesthesia Event [address] [address] Miguel Fitzpatrick MD 05/07/2024 8:43 AM EDT Anesthesia Event [address] [address] Olimpia Luz MD 05/05/2024 8:50 AM [place] [address] Kiara Traore MD, PhD 04/30/2024 8:43 AM [place] [address] Robyn Wei MD 04/14/2024 8:53 AM EST Anesthesia Event [address] [address] Reinaldo Vargas MD 04/09/2024 8:27 AM EST Anesthesia Event [address] [address] Devi Rodriguez MD from Last 3 Months Immunizations Immunization Administration Dates Next Due COVID-19 (Pre-12/16) Pfizer Vaccine, mRNA, PF 03/14/2020 [id number] FORMULATION 02/15/2009 Influenza High-Dose Quadriva lent Preservative Free IM 12/19/2021 Influenza High-Dose Trivalen t Preservative Free IM 02/16/2024,11/24/2018,11/12/2017,10/12,11/06/2016,12/14/2015,02/18/2014 Influenza Quadrivalent Adjuv anted Preservative Free IM 01/21/2023 Influenza Quadrivalent Prese rvative Free IM 12/02/2020,11/04/2014 Influenza Trivalent Preserva tive Free IM 03/11/2012,11/13/2010 Influenza, Unspecified Formulation 10/14,08/23/2009,11/08/2008,12/22,12/23/2006 Pneumococcal conjugate PCV13 05/27/2014 Pneumococcal conjugate PCV20 01/27/2024( Deferred: Patient Refused - pt certain about not recieving) Pneumococcal polysaccharide PPSV23 02/17/2016,,12/14/2008 Tdap 07/18/2022,08/06/2011 Zoster live 05/08/2012 Zoster recombinant 01/21/2023,07/18/2022 Social History Tobacco Use Types Packs/Day Years Used Date Smoking Tobacco: Former Cigarettes Q uit: 02/26/1985 Smokeless Tobacco: Former Tobacco Cessation:Counseling Given: No Alcohol Use Standard Drinks/Week Comments No 0 [...] or medical care? Patient unable to respond 03/05/2024 In the past 12 months have y ou been in a relationship with a person who hurts, threatens, or tries to control you? Patient unable to respond 03/05/2024 Are you denied basic needs s uch as food, clothing, or medical care? Patient unable to respond 03/05/2024 In the past 12 months have y ou been in a relationship with a person who hurts, threatens, or tries to control you? Patient unable to respond 03/05/2024 Sex and Gender Information Value Date Recorded Sex Assigned at Not on file Legal Sex Male 7:10 PM EST Gender Identity Not on file Sexual Orientation Not on file Last Filed Vital Signs Vital Sign Reading Time Taken Comments Blood Pressure 131/89 06/23/2024 5:50 AM EDT Pulse 72 06/23/2024 5:50 AM EDT Temperature 36.4 ??C (97.6 ??F) 06/23/2024 5:50 AM ED T Respiratory Rate 18 06/23/2024 5:50 AM EDT Oxygen Saturation 97% 06/23/2024 5:50 AM EDT Inhaled Oxygen Concentration 28% 02/27/2016 1 2:00 PM EST Weight 74.2 kg (163 lb 9.3 oz) 02/24/2024 5:03 P M EST Height 190.5 cm (6' 3 ) 02/24/2024 5:03 PM EST Body Mass Index 20.45 02/24/2024 5:03 PM EST Plan of Treatment Upcoming Encounters Date Type Department Care Team (Late st Contact Info) Description 07/14/2024 7:30 AM EDT Appointment [facility] [address] [place] [address] [facility] [address] [place] [address] and [facility] [place] [address] [email or web address] 08/04/2024 7:30 AM EDT Appointment [facility] [address] [place] [id number] Jose Khanna MD [address] [facility] [place] [address] [email or web address] 08/25/2024 7:30 AM EDT Appointment [facility] [address] [place] [address] Jose Khanna MD [address] [facility] [place] [address] [email or web address] Health Maintenance Due Date Last Done Comments DEPRESSION SCREENING 1960 HEPATITIS C SCREENING 1966 RSV VACCINE (1 - 1-dose 75+ series) 2023 COVID-19 VACCINE ( season) 2023 01/21/2023, 12/27/2021, 09/03/2021, Additional history exists SMOKING Hx and SMOKELESS TOBACCO SCREENING 06/21/2025 06/21/2024 CREATININE LEVEL 06/22/2025 06/22/2024, 06/2024, 03/23/2024, Additional history exists LIPID PANEL 02/03/2029 02/04/2024, 03/07/2016 Adult Td,Tdap Booster 07/18/2032 07/18/2022, 012 PNEUMOCOCCAL VACCINES (50+ years) Completed 02/17/2016, 06/02/2015, 05/27/2014, Additional history exists ZOSTER VACCINES Completed 01/21/2023, 06/25, 05/08/2012 HEPATITIS A VACCINES Aged Out No long er eligible based on patient's age to complete this topic HIB VACCINES Aged Out No longer eligi ble based on patient's age to complete this topic MENINGOCOCCAL VACCINES (ACWY) Aged Out No longer eligible based on patient's age to complete this topic Medical Devices Not on file Procedures Procedure Name Priority Date/Time Associated Diagnosis Comments OUTSIDE PROCEDURE 06/25/2024 COMPREHENSIVE METABOLIC PANEL Routine 06/22/2024 11:56 AM EDT HC BLOOD COUNT COMPLETE AUTO&AUTO DIFRNTL WBC Routine 06/22/2024 11:56 AM EDT T SPOT TB TEST Routine 06/22/2024 11:56 AM EDT XR CHEST PORTABLE Required for discharge 06/21/2024 2:48 PM EDT ELECTROCONVULSIVE THERAPY Routine 06/21/2024 7:00 AM EDT Severe episode of recurrent major depressive disorder, with psychotic features ELECTROCONVULSIVE THERAPY Routine 06/09/2024 8:15 AM EDT Severe episode of recurrent major depressive disorder, with psychotic features ELECTROCONVULSIVE THERAPY Routine 05/24/2024 8:46 AM EDT Severe episode of recurrent major depressive disorder, with psychotic features ELECTROCONVULSIVE THERAPY Routine 05/17/2024 9:07 AM EDT Severe episode of recurrent major depressive disorder, with psychotic features Catatonia ELECTROCONVULSIVE THERAPY Routine 05/10/2024 7:54 AM EDT Severe episode of recurrent major depressive disorder, with psychotic features Catatonia ELECTROCONVULSIVE THERAPY Routine 05/07/2024 8:54 AM EDT Severe episode of recurrent major depressive disorder, with psychotic features Catatonia ELECTROCONVULSIVE THERAPY Routine 05/05/2024 8:20 AM EDT Severe episode of recurrent major depressive disorder, with psychotic features IP CONSULT TO WOUND NURSE Routine 05/04/2024 10:33 AM EDT Procedure Note - Leila Villalta RN - 05/06/2024 12:19 PM EDTThis note is in progress. Images from the original note were not included. Initial Wound RN?Consult: Abrasion right face History: per chart review pt is a 74 year old male with a history formultiple high-risk of lethal suicide attempts, cognitive impairments, [facility] via EMS with c/f SI statements. 05/06/24 Photo: Review of wound images completed. Assessment; right cheek appear to have a black scab, surrounding skinwhite, pale pink scar, evident of healing tissue -per flow sheet and in communication with RN no drainage Pt was seen by derm 01/21/2024 for skin lesions on the left congregation andright cheek for possible skin cancer. -treatment recommended then was; Commercial wound cleanser or normalsaline and dry gauze. Nutrition; meal intake 100% Weight: 74.2 kg (163 lb 9.3 oz) BMI: 20.45 kg/m?? Narayan Scale: 13 Recommendations:? Right face 1.Clean with SeaClens spray ( in attempt to remove the dry scab), pat dry,apply skin barrier film to arturo-wound skin. 2.Secure with a small bordered Mepilex. Change 3 x week Coordination of care: with primary RN on all of the above ? Signing off: please reconsult as needed ELECTROCONVULSIVE THERAPY Routine 04/30/2024 8:55 AM EST Severe episode of recurrent major depressive disorder, with psychotic features HC BLOOD COUNT COMPLETE AUTO&AUTO DIFRNTL WBC Routine 04/28/2024 7:44 AM EST COMPREHENSIVE METABOLIC PANEL Routine 04/28/2024 7:44 AM EST ELECTROCONVULSIVE THERAPY Routine 04/14/2024 8:08 AM EST Severe episode of recurrent major depressive disorder, with psychotic features Catatonia ELECTROCONVULSIVE THERAPY Routine 04/09/2024 8:41 AM EST Severe episode of recurrent major depressive disorder, with psychotic features Catatonia LIPID PANEL Routine 02/04/2024 12:17 PM EST from Last 3 Months or Most Recently Relevant to Health Maintenance Results * Outside Procedure (06/25/2024) us Scanning Interface Provider PROCEDURE/MINOR SURG ICAL PERFORMABLES Final Result * (ABNORMAL) Comprehensive metabolic panel (06/22/2024 11:56 AM EDT) Only the most recent of2 resultswithin the time period is included. SODIUM 139 136 - 145 mmol/L [facility] POTASSIUM 4.1 3.4 - 5.0 mmol/L [facility] Comment:HEMOLYSIS_INDEX_OF_2 8,INTERPRET_WITH_CAUTION CHLORIDE 103 98 - 107 mmol/L [facility] CO2 28 22 - 31 mmol/L [facility] BUN 25(H) 6 - 23 mg/dL [facility] CREATININE 0.67 0.50 - 1.20 mg/dL [facility] GLUCOSE 93 70 - 115 mg/dL [facility] ALBUMIN 4.0 3.5 - 5.2 g/dL [facility] TOTAL PROTEIN 7.1 6.0 - 8.0 g/dL [facility] CALCIUM 9.6 8.6 - 10.7 mg/dL [facility] ALKALINE PHOSPHATASE 94 40 - 130 U/L [facility] TOTAL BILIRUBIN 0.4 0.0 - 1.0 mg/dL [facility] AST 24 10 - 50 U/L [facility] ALT 17 10 - 50 U/L [facility] GLOBULIN 3.1 2.2 - 4.2 g/dL [facility] EGFR 97 >60 mL/min/1.7 3m2 [facility] Comment:Estimated glomerular filtration rate calculated using the CKD-EPI refit equation. ANION GAP 9 3 - 15 mmol/L [facility] Blood 06/22/2024 11:5 6 AM EDT 06/22/2024 1:15 PM EDT us Jose Khanna MD LAB BLOOD ORDERABLES Final Resul t [facility] [address] [place] [address] * T spot TB test (06/22/2024 11:56 AM EDT) T-SPOT.TB Negative Negative [facility] [place] [facility] [employer] Comment: (NOTE) A negative test result does not exclude the possibility of exposure to or infection with Mycobacterium tuberculosis (M. tuberculosis). Patients with recent exposure to TB infected individuals exhibiting a negative T-SPOT.TB result should be considered for retesting within 6 weeks or if other relevant clinical symptoms indicate. Results from T-SPOT.TB testing must be used in conjunction with each individual's epidemiological history, current medical status, and results of other diagnostic evaluations. ? The T-SPOT.TB test is qualitative and results are reported as positive, borderline, or negative, given that the test controls perform as expected. In line with the Centers for Disease Control and Prevention's 2010 recommendation to report quantitative measurements alongside the qualitative result, the laboratory provides spot counts for informational purposes only. The T-SPOT.TB test should not be interpreted as a quantitative test. Panel A Spot Count Corrected For Neg Control 0 [facility] Panel B Spot Count Corrected For Neg Control 0 [facility] [place] [facility] Negative Control Passed [facility] [employer] Positive Control Passed [facility] Comment: (NOTE) For additional information, please refer to http://education.[employer].[place]/faq/RYM638 (This link is being provided for informational/ educational purposes only.) ? Blood 06/22/2024 11:5 6 AM EDT 06/22/2024 1:15 PM EDT us Jose Khanna MD LAB BLOOD ORDERABLES Final Resul t [facility] [address] [place], [place] * (ABNORMAL) CBC and differential (06/22/2024 11:56 AM EDT) Only the most recent of2 resultswithin the time period is included. WBC 5.59 4.00 - 11.00 K/uL [facility] RBC 4.15(L) 4.50 - 5.90 M/uL [facility] HGB 12.9(L) 13.5 - 17.5 g/dL [facility] HCT 39.4(L) 41.0 - 53.0 % [facility] PLT 123(L) 150 - 450 K/uL [facility] MCV 94.9 80.0 - 100.0 fL [facility] MCH 31.1(H) 27.0 - 31.0 pg [facility] MCHC 32.7 32.0 - 36.0 g/dL [facility] RDW 14.3 11.5 - 14.5 % [facility] MPV 10.5 8.4 - 12.0 fL [facility] NRBC 0.00 0.00 /100 WBCs [facility] ABSOLUTE NRBC 0.00 0.00 K/uL [facility] DIFF METHOD Auto [facility] NEUTS 77.4(H) 48.0 - 76.0 % [facility] LYMPHS 16.1(L) 18.0 - 41.0 % [facility] MONOS 4.3 4.0 - 11.0 % [facility] EOS 1.8 0.0 - 5.0 % [facility] BASOS 0.2 0.0 - 1.5 % [facility] Granulocytes, immature (%) 0.2 0.0 - 0.9 % [facility] ABSOLUTE NEUTS 4.33 1.92 - 7.60 K/uL [facility] ABSOLUTE LYMPHS 0.90 0.72 - 4.10 K/uL [facility] ABSOLUTE MONOS 0.24 0.16 - 1.10 K/uL [facility] ABSOLUTE EOS 0.10 0.00 - 0.50 K/uL [facility] ABSOLUTE BASOS 0.01 0.00 - 0.15 K/uL [facility] Granulocytes, immature 0.01 0.00 - 0.09 K/uL [facility] Blood 06/22/2024 11:5 6 AM EDT 06/22/2024 1:15 PM EDT us Jose Khanna MD LAB BLOOD ORDERABLES Final Resul t [place] [id number] * XR Chest Portable (06/21/2024 2:48 PM EDT) Anatomical Region Laterality Modality Chest Computed Radiogr aphy 06/21/2024 3:14 PM EDT Impressions 06/21/2024 3:15 PM EDT No convincing evidence of active tuberculosis Narrative 06/21/2024 3:15 PM EDT XR CHEST PORTABLE Referring clinician's provided indication for this examination in [facility]: Tuberculosis; TB screening per senior care request, no prior TB exposure COMPARISON: 02/11/24 FINDINGS: Support Devices / Implants / Lines and Tubes: None. Lungs: Unchanged left basilar opacity which likely represents partially rounded atelectasis as seen on prior CT chest. The lungs are otherwise normally aerated and expanded Pleura: No pneumothorax. Cardiomediastinal Silhouette: Unchanged Bones/Soft Tissues: No significant abnormality Procedure Note Kalin Ryan MD - 06/21/2024 XR CHEST PORTABLE Referring clinician's provided indication for this examination in [facility]:Tuberculosis; TB screening per senior care request, no prior TBexposure COMPARISON: 02/11/24 FINDINGS: Support Devices / Implants / Lines and Tubes: None. Lungs: Unchanged left basilar opacity which likely represents partiallyrounded atelectasis as seen on prior CT chest. The lungs are otherwisenormally aerated and expanded Pleura: No pneumothorax. Cardiomediastinal Silhouette: Unchanged Bones/Soft Tissues: No significant abnormality IMPRESSION: No convincing evidence of active tuberculosis us Jose Khanna MD IMG XR CHEST Final Result * Electroconvulsive therapy (06/21/2024 7:00 AM EDT) Connor Cochran MD - 06/21/2024 7:00 AM EDT Connor Saldana MD ? 06/21/2024 11:31 AM [facility] ECT Documentation ECT Documentation for Doug Salinas ??on 06/21/2024 PRE-ECT Pre ECT Subjective: Patient reports feeling well with partial remission of symptoms. ??Patient denies medical changes since the last treatment. Patient interactive today, at baseline compared to previous exam. ??Able to follow commands. Not expressing paranoia or SI. ??Patient without medical changes since the last treatment. Pre ECT Assessment Doug Salinas is a 74 y.o. year old presenting for ECT for treatment of catatonia. ??Prior to ECT the patient is not deemed at imminent risk of harm. ??There are no side effects which would warrant cessation of treatment. ??Any change to ECT parameters were discussed with the patient and all medical concerns are discussed with the anesthesiologist. ??There were no trainees involved in the patient's care. ?? Patient NPO: Yes POST-ECT ASSESSMENT The procedure was performed using the [employer] 5000q machine. ECT Settings/Treatment Parameters: ? Series #: 1 ?? Treatment #: 23 ? Consent expiration date: 08/30/24 ? BP: 128/64 Heart Rate: (!) 58 ?? SpO2: 99 % ?? Cuff: No ?? Electrode placement: BL ?? Pulse width (ms): 0.5 ms ?? Frequency (Hz): 90 Hz ?? Duration of stimulus: 8 sec ?? Current (mA): 800 mA ? Duration of EEG seizure: 34 sec ?? Duration of motor seizure: 26 sec ?? Energy (J): 93 J ?? Static impedance (ohms): 2198 ohms ?? Dynamic impedance (ohms): 198 ohms ?? Administered Anesthesia: This case was medically directed by an anesthesiologist who personally participated in the induction of anesthesia and monitoring the course of the anesthetic. ??Please see documentation by the anesthesiologist for delivered doses. Procedure Notes: Time out called: Yes Changes to ECT settings from last procedure: No Additional procedure notes: No Vital Signs monitored during procedure: VITAL SIGNS: BP 128/64 ?? Pulse (!) 58 ?? Temp 36.5 ??C (97.7 ??F) (Temporal) ?? Resp 15 ?? SpO2 99% ?? Vital Signs ? 06/20 0706/21 0706/21 0706/21 1129 ?? Most Recent ?? Temperature (??C) ?? 36.4 - ??36.5 ??36.5 (97.7) 06/21 926 Heart Rate ?? 56 - ??63 ??58 06/21 926 BP ?? 117/68 - ??151/72 ??128/64 06/21 926 Respiratory Rate ?? 14 - ??33 ??15 06/21 926 SpO2 (%) ?? 96 - ??100 ??99 06/21 926 BLOOD PRESSURE HISTORY: Systolic (36hrs), Av , Min:111 , Max:151 Diastolic (36hrs), Av, Min:58, Max:78 Changes to ECT plan for future treatments: continue maintenance. ?? A time in discussion was held with PACU nursing staff and anesthesia to discuss progress to date and plan for continued treatment. Disposition There are still significant safety concerns and the patient will be transported back to the inpatient unit for continued treatment. Jose Khanna MD PROCEDURE/MINOR SURGICAL ORDERAB LES Final Result * Electroconvulsive therapy (06/09/2024 8:15 AM EDT) Narrative Antonio Arce MD - 06/09/2024 8:15 AM EDT Antonio Arce MD ? 06/09/2024 ??8:58 AM Electroconvulsive therapy Date/Time: 06/09/2024 8:15 AM Performed by: Antonio Arce MD Authorized by: Jose Khanna MD ?? Indications: catatonia ?? Post-procedure: Procedure Successful: Yes ?? Patient tolerance: ??Patient tolerated the procedure well with no immediate complications us Jose Khanna MD PROCEDURE/MINOR SURGICAL ORDERAB LES Final Result * Electroconvulsive therapy (05/24/2024 8:46 AM EDT) Narrative Connor Saldana MD - 05/24/2024 8:46 AM EDT Connor Saldana MD ? 05/24/2024 ??8:49 AM [facility] ECT Documentation ECT Documentation for Doug Salinas ??on 05/24/2024 PRE-ECT Pre ECT Subjective: He is following commands, reports okay mood, denies SI/HI/AVH. ??Patient with not medical changes since the last treatment. Able to voice one word responses and some perseveration on exam. Pre ECT Assessment Doug Salinas is a 74 y.o. year old presenting for ECT for treatment of catatonia. ??Prior to ECT the patient is deemed at imminent risk of harm. ??There are no side effects which would warrant cessation of treatment. ??Any change to ECT parameters were discussed with the patient and all medical concerns are discussed with the anesthesiologist. ??There were no trainees involved in the patient's care. ?? Patient NPO: Yes POST-ECT ASSESSMENT The procedure was performed using the [employer] 5000q machine. ECT Settings/Treatment Parameters: ?? Treatment phase: Acute ?? Series #: 1 ?? Treatment #: 20 ? Consent expiration date: 08/30/24 ? BP: 137/72 Heart Rate: 65 ?? SpO2: 97 % ?? Cuff: No ?? Electrode placement: BL ?? Pulse width (ms): 0.5 ms ?? Frequency (Hz): 90 Hz ?? Duration of stimulus: 8 sec ?? Current (mA): 800 mA ? Charge (mC): 576 mC ?? Duration of EEG seizure: 31 sec ?? Duration of motor seizure: 16 sec ?? Energy (J): 94.5 J ?? Static impedance (ohms): 2606 ohms ?? Dynamic impedance (ohms): 202 ohms ?? Administered Anesthesia: This case was medically directed by an anesthesiologist who personally participated in the induction of anesthesia and monitoring the course of the anesthetic. ??Please see documentation by the anesthesiologist for delivered doses. Procedure Notes: Time out called: Yes Changes to ECT settings from last procedure: No Additional procedure notes: No Vital Signs monitored during procedure: VITAL SIGNS: BP 137/72 ?? Pulse 65 ?? Temp 36.3 ??C (97.4 ??F) (Temporal) ?? Resp 15 ?? Ht 190.5 cm (6' 3 ) ?? Wt 74.2 kg (163 lb 9.3 oz) ?? SpO2 97% ?? BMI 20.45 kg/m? Vital Signs ? 05/23 ?? Most Recent ?? Temperature (??C) 36.2 - ??36.7 ?? 36.3 ??36.3 (97.4) 05/24 806 Heart Rate 57 - ??65 ?? 65 ??65 05/24 806 BP 114/70 - ??129/82 ?? 137/72 ??137/72 05/24 806 Respiratory Rate ? 15 ??15 05/24 806 SpO2 (%) 95 - ??98 ?? 97 ??97 05/24 806 BLOOD PRESSURE HISTORY: Systolic (36hrs), Av , Min:114 , Max:137 Diastolic (36hrs), Av, Min:70, Max:82 Changes to ECT plan for future treatments: Will continue maintenance ECT tx course. ??A time in discussion was held with PACU nursing staff and anesthesia to discuss progress to date and plan for continued treatment. Disposition There are still significant safety concerns and the patient will be transported back to the inpatient unit for continued treatment. us Jose Khanna MD PROCEDURE/MINOR SURGICAL ORDERAB LES Final Result * Electroconvulsive therapy (05/17/2024 9:07 AM EDT) Narrative Connor Saldana MD - 05/17/2024 9:07 AM EDT Connor Saldana MD ? 05/17/2024 ??9:11 AM [facility] ECT Documentation ECT Documentation for Doug Salinas ??on 05/17/2024 PRE-ECT Pre ECT Subjective: Patient reports feeling well with partial remission of symptoms. ??Patient denies medical changes since the last treatment. Patient appears improved, Pre ECT Assessment Doug Salinas is a 74 y.o. year old presenting for ECT for treatment of catatonia. ??Prior to ECT the patient is deemed at imminent risk of harm. ??There are no side effects which would warrant cessation of treatment. ??Any change to ECT parameters were discussed with the patient and all medical concerns are discussed with the anesthesiologist. ??There were no trainees involved in the patient's care. ?? Patient NPO: Yes POST-ECT ASSESSMENT The procedure was performed using the [employer] 5000q machine. ECT Settings/Treatment Parameters: ?? Treatment phase: Acute ?? Series #: 1 ?? Treatment #: 20 ? Consent expiration date: 08/30/24 ? BP: 92/50 Heart Rate: (!) 56 ?? SpO2: 98 % ?? Cuff: No ?? Electrode placement: BL ?? Pulse width (ms): 0.5 ms ?? Frequency (Hz): 90 Hz ?? Duration of stimulus: 8 sec ?? Current (mA): 800 mA ? Charge (mC): 576 mC ?? Duration of EEG seizure: 23 sec ?? Duration of motor seizure: 15 sec ?? Energy (J): 87.3 J ?? Static impedance (ohms): 1641 ohms ?? Dynamic impedance (ohms): 187 ohms ?? Administered Anesthesia: This case was medically directed by an anesthesiologist who personally participated in the induction of anesthesia and monitoring the course of the anesthetic. ??Please see documentation by the anesthesiologist for delivered doses. Procedure Notes: Time out called: Yes Changes to ECT settings from last procedure: No Additional procedure notes: No Vital Signs monitored during procedure: VITAL SIGNS: BP 92/50 ?? Pulse (!) 56 ?? Temp 36.4 ??C (97.6 ??F) (Temporal) ?? Resp 14 ?? Ht 190.5 cm (6' 3 ) ?? Wt 74.2 kg (163 lb 9.3 oz) ?? SpO2 98% ?? BMI 20.45 kg/m? Vital Signs ? 05/16 0701 05/17 0700 05/17 0705/17 0907 ?? Most Recent ?? Temperature (??C) 36.3 - ??36.5 ?? 36.4 ??36.4 (97.6) 05/17 0745 Heart Rate 54 - ??69 ?? 56 ??56 05/17 08 BP 87/54 - ??97/63 ?? 92/50 ??92/50 05/17 0800 Respiratory Rate ? 14 ??14 05/17 0800 SpO2 (%) 95 - ??97 ?? 98 ??98 05/17 0800 BLOOD PRESSURE HISTORY: Systolic (36hrs), Av , Min:87 , Max:97 Diastolic (36hrs), Av, Min:50, Max:63 Changes to ECT plan for future treatments: Will continue maintenance tx course. ??A time in discussion was held with PACU nursing staff and anesthesia to discuss progress to date and plan for continued treatment. Disposition There are still significant safety concerns and the patient will be transported back to the inpatient unit for continued treatment. us Jose Khanna MD PROCEDURE/MINOR SURGICAL ORDERAB LES Final Result * Electroconvulsive therapy (05/10/2024 7:54 AM EDT) Narrative Jose Khanna MD - 05/10/2024 7:54 AM EDT Jose Khanna MD ? 05/10/2024 ??9:16 AM Electroconvulsive therapy Date/Time: 05/10/2024 7:54 AM Performed by: Jose Khanna MD Authorized by: Jose Khanna MD ?? Indications: catatonia ?? Post-procedure: Procedure Successful: Yes ?? Patient tolerance: ??Patient tolerated the procedure well with no immediate complications us Jose Khanna MD PROCEDURE/MINOR SURGICAL ORDERAB LES Final Result * Electroconvulsive therapy (05/07/2024 8:54 AM EDT) Narrative Jose Khanna MD - 05/07/2024 8:54 AM EDT Jose Khanna MD ? 05/07/2024 ??8:55 AM Electroconvulsive therapy Date/Time: 05/07/2024 8:54 AM Performed by: Jose Khanna MD Authorized by: Jose Khanna MD ?? Indications: catatonia ?? Post-procedure: Procedure Successful: Yes ?? Patient tolerance: ??Patient tolerated the procedure well with no immediate complications us Jose Khanna MD PROCEDURE/MINOR SURGICAL ORDERAB LES Final Result * Electroconvulsive therapy (05/05/2024 8:20 AM EDT) Narrative Antonio Arce MD - 05/05/2024 8:20 AM EDT Antonio Arce MD ? 05/05/2024 ??9:02 AM Electroconvulsive therapy Date/Time: 05/05/2024 8:20 AM Performed by: Antonio Arce MD Authorized by: Jose Khanna MD ?? Indications: catatonia ?? Post-procedure: Procedure Successful: Yes ?? Patient tolerance: ??Patient tolerated the procedure well with no immediate complications us Jose Khanna MD PROCEDURE/MINOR SURGICAL ORDERAB LES Final Result * Electroconvulsive therapy (04/30/2024 8:55 AM EST) Narrative Jose Khanna MD - 04/30/2024 8:55 AM EST Jose Khanna MD ? 04/30/2024 ??8:56 AM Electroconvulsive therapy Date/Time: 04/30/2024 8:55 AM Performed by: Jose Khanna MD Authorized by: Jose Khanna MD ?? Indications: catatonia ?? Post-procedure: Procedure Successful: Yes ?? Patient tolerance: ??Patient tolerated the procedure well with no immediate complications us Jose Khanna MD PROCEDURE/MINOR SURGICAL ORDERAB LES Final Result * Electroconvulsive therapy (04/14/2024 8:08 AM EST) Narrative Antonio Arce MD - 04/14/2024 8:08 AM EST Antonio Arce MD ? 04/14/2024 ??9:27 AM Electroconvulsive therapy Date/Time: 04/14/2024 8:08 AM Performed by: Antonio Arce MD Authorized by: Jose Khanna MD ?? Indications: catatonia ?? Post-procedure: Procedure Successful: Yes ?? Patient tolerance: ??Patient tolerated the procedure well with no immediate complications us Jose Khanna MD PROCEDURE/MINOR SURGICAL ORDERAB LES Final Result * Electroconvulsive therapy (04/09/2024 8:41 AM EST) Narrative Jose Khanna MD - 04/09/2024 8:41 AM EST oJse Khanna MD ? 04/09/2024 ??8:42 AM Electroconvulsive therapy Date/Time: 04/09/2024 8:41 AM Performed by: Jose Khanna MD Authorized by: Jose Khanna MD ?? Indications: catatonia ?? Post-procedure: Procedure Successful: Yes ?? Patient tolerance: ??Patient tolerated the procedure well with no immediate complications us Jose Khanna MD PROCEDURE/MINOR SURGICAL ORDERAB LES Final Result * Lipid panel (02/04/2024 12:17 PM EST) HDL 53 35 - 100 mg/dL [facility] CHOLESTEROL 174 <200 mg/dL [facility] TRIGLYCERIDES 72 40 - 150 mg/dL [facility] LDL 107 50 - 129 mg/dL [facility] CARDIAC RISK RATIO 3.3 0.0 - 5.0 [facility] NON-HDL CHOLESTEROL 121 mg/dL [facility] Comment:NCEP ATP III guideli yo suggest a non-HDL cholesterol goal 30 mg/dl higher than the patient-specific LDL goal. Blood 02/04/2024 12:1 7 PM EST 02/04/2024 12:44 PM EST us Joel Griffith MD LAB BLOOD ORDERABLES Final Resul t [facility] [address] [place] [address] from Last 3 Months or Most Recently Relevant to Health Maintenance Insurance [employer] MED[employer]ARE REPLACEMENT MEDICARE PART A & [place] [address] [place] [address] OPT[employer] MEDICARE REPLACEMENT MEDICARE PART A & B [address] [place] [address] OPT[employer] MEDICARE REPLACEMENT MEDICARE REPLACEMENT MEDICARE PART A & B [facility] OPTION MEDICARE REPLACEMENT MEDICARE PART A & B MEDICARE REPLACEMENT MEDICARE PART A & B MEDICARE REPLACEMENT MEDICARE REPLACEMENT MEDICARE PART A & B Advance Directives For more information, please contact: [phone] (9AM - 5PM [facility], Friday-Friday) Documents on File Type Date Recorded Patient Doctor Of Veterinary Medicine Expl anation Healthcare Proxy 06/28/2024 11:24 AM Legal Guardianship 06/25/2024 4:23 PM Notic e of Hearing Healthcare Proxy 02/26/2024 10:10 AM affirm ed HCP Healthcare Proxy 02/27/2016 9:22 AM signed on 05/21/2013 * Full Code (Latest Code Status on File) Date Activated Date Inactivated Comments 02/16/2024 11:34 PM Question Answer Comments Code Status Confirmed With: Other (specify below ) * Full Code Date Activated Date Inactivated Comments 01/20/2024 3:48 AM 02/16/2024 11:34 PM Question Answer Comments Code Status Confirmed With: Other (specify below ) * Full Code (Presumed) Date Activated Date Inactivated Comments 03/06/2016 4:32 PM 03/18/2016 1:15 PM * Full Code (Confirmed) Date Activated Date Inactivated Comments 03/06/2016 4:32 PM 03/06/2016 4:32 PM Question Answer Comments Code Discussion Comments: patient * Full Code (Confirmed) Date Activated Date Inactivated Comments 02/28/2016 5:43 AM 03/06/2016 4:32 PM Question Answer Comments Code Discussion Comments: patient Healthcare Agents on File Name Relationship Healthcare Agent Relationshi p Communication Baylee Salinas Spouse .Primary Health Care Agent (Proxy form on file) Hugh Salinas Brother Alternate Health care Agent (Proxy form on file) Care Teams Image Editor Relationship Specialty Start Date End Date Alina Ames MD [address] [place] [address] [email or web address] P[facility] - General Family Medicine 01/19/24 Additional Source Comments The information contained in this document represents components of the legal health record. It is not the complete legal health record.[facility]
[2024-07-07 13:40] LABS: MANUAL DIFF FLAG NO
[2024-07-07 13:46] LABS: INTERNATIONAL NORM RATIO 1.3 (0.9-1.1); Prothrombin Time 14.6 SEC (10.9-12.4)
[2024-07-07 13:48] LABS: Basophils Percent Auto 0.3 % (0-2); Eosinophils Absolute Auto 0.1 X10*3/uL (0.0-0.4); Eosinophils Percent Auto 2.1 % (0-4); Hematocrit 34.5 % (42.0-52.0); Hemoglobin 11.5 g/dl (14.0-18.0); Imm Gran Abs Auto 0.02 X10*3/uL (0.00-0.03); Imm Gran Pct Auto 0.3 % (0.0-0.4); Lymphocytes Absolute Auto 1.4 X10*3/uL (1.2-4.9); Lymphocytes Percent Auto 23.1 % (20-40); Mean Corpuscular HGB Conc 33.3 g/dl (31.0-36.0); Mean Corpuscular Hemoglobin 31.5 pg (27.0-33.0); Mean Corpuscular Volume 94.5 fL (80.0-98.0); Mean Platelet Volume 10.4 fL (9.4-12.4); Monocytes Absolute Auto 0.4 X10*3/uL (0.1-1.2); Monocytes Percent Auto 6.9 % (2-11); Neutrophils Absolute Auto 4.1 x10*3/uL (2.0-8.3); Neutrophils Percent Auto 67.3 % (45-73); Platelet Count 135 X10*3/uL (160-400); Red Blood Count 3.65 X10*6/uL (4.60-5.80); Red Cell Distribution Width 14.2 % (11.0-16.0); White Blood Count 6.1 X10*3/uL (4.8-10.8)
--- NOTE | 2024-07-07 17:56 | PC.NURSE ---
[facility] called Nurse to Nurse given to Priya CASTLE.
[2024-07-07 17:57] VITALS: BP 140/82; PULSE 61; RESP 16; TEMP 37.2; O2SAT 95
== END 2024-07-07 17:59 | disposition skilled nursing facility (03) ==
PROVIDERS: Physician Assistant; Emergency Provider Emergency Medicine; PCP Hospitalist
DX: S91.115A Laceration without foreign body of left lesser toe(s) without damage to nail, initial encounter (principal); I48.91 Unspecified atrial fibrillation; X58.XXXA Exposure to other specified factors, initial encounter; Y93.9 Activity, unspecified; Y92.9 Unspecified place or not applicable; Y99.8 Other external cause status; Z79.01 Long term (current) use of anticoagulants; Z79.899 Other long term (current) drug therapy; Z87.891 Personal history of nicotine dependence
CPT/HCPCS: 36415; 85025; 85610; 99283